=== PATIENT | female | born 1970 | race American Indian/Alaskan Native ===

== ENCOUNTER 2016-08-11 09:54 | Inpatient (IN) | payer OTHER ==
[2016-08-11] MEDS ORDERED: CARDIZEM IV ONE (11:01)
--- NOTE | 2016-08-11 11:24 | Emergency Department Report ---
HPI - General Chief Complaint: Chest Pain Time Seen by Provider: 08/11/16 11:00 - HPI HPI: Room 26 The patient is a 46-year-old female presenting with a chief complaint of chest pain or shortness of breath. Patient states she awakened this morning at 06:5 in her usual state of health. The patient states she went to work and at approximately 07:20 she developed substernal chest pain that was burning in nature. Patient states she felt short of breath and diaphoretic. Patient denies nausea or vomiting. Patient states her symptoms subsided when she sat down. Patient states when she got back up to go to the bathroom her symptoms returned causing her to hold onto the wall. The patient states EMS was called and they recommended she go to the ED or care. The patient went to an urgent care facility and when the weight was determined to be too long she came to the ED. The patient has been administered diltiazem 20 mg IV in the ED and currently states she feels "fine." Patient states her last stress test occurred approximately 6 years ago. Patient states she's never had a cardiac catheterization Location: Chest Duration: [see above] Quality: Burning Severity: Moderate Modifying factors: [see above] Context: [see above] Mode of transportation: [not driving] ED Past Medical Hx - Past Medical History Hx Hypertension: Yes Hx Congestive Heart Failure: Yes Hx Diabetes: Yes Hx Renal Disease: Yes (stg 4) Additional medical history: Palpitations "because of stress." - Surgical History Past Surgical History?: No - Family History Family history: no significant - Social History Smoking Status: Never Smoker Substance Use Type: None (denies illicit drug use) - Medications Home Medications: Home Medications Medication Instructions Recorded Confirmed Last Taken Type Furosemide [Lasix] 20 mg PO BID 08/11/16 08/11/16 08/10/16 History Metoprolol Xl [Metoprolol 50 mg PO QHS 08/11/16 08/11/16 08/10/16 History SUCCINATE ER TAB] amLODIPine [Norvasc] 5 mg PO BID 08/11/16 08/11/16 08/10/16 History glipiZIDE [glipiZIDE ER] 5 mg PO BID 08/11/16 08/11/16 08/10/16 History ED Review of Systems ROS: Stated complaint: ACCEL HR/CP/SOB/BP 190/110 Other details as noted in HPI Comment: All other systems reviewed and negative Constitutional: diaphoresis Eyes: denies: eye pain, eye discharge, vision change ENT: denies: ear pain, throat pain Respiratory: shortness of breath Cardiovascular: chest pain Endocrine: no symptoms reported Gastrointestinal: denies: abdominal pain, nausea, diarrhea Genitourinary: denies: urgency, dysuria, discharge Musculoskeletal: denies: back pain, joint swelling, arthralgia Skin: denies: rash, lesions Neurological: denies: headache, weakness, paresthesias Psychiatric: denies: anxiety, depression Hematological/Lymphatic: denies: easy bleeding, easy bruising Physical Exam - Physical Exam Vital Signs: Vital Signs 08/11/16 08/11/16 08/11/16 10:19 11:00 11:10 Temperature 98.2 F Pulse Rate 158 H 130 H Respiratory 22 18 Rate Blood Pressure 163/112 180/100 O2 Sat by Pulse 96 100 Oximetry Physical Exam: GENERAL: The patient is well-developed well-nourished female lying on stretcher not appear to be in acute distress. [] HEENT: Normocephalic. Atraumatic. Extraocular motions are intact. Patient has moist mucous membranes. NECK: Supple. Trachea midline CHEST/LUNGS: Clear to auscultation. There is no respiratory distress noted. HEART/CARDIOVASCULAR: Regular. There is no tachycardia. There is no gallop rub or murmur. ABDOMEN: Abdomen is soft, nontender. Patient has normal bowel sounds. There is no abdominal distention. SKIN: There is no rash. There is no edema. There is no diaphoresis. NEURO: The patient is awake, alert, and oriented. The patient is cooperative. The patient has normal speech MUSCULOSKELETAL: There is no evidence of acute injury. ED Course Vital Signs 08/11/16 08/11/16 08/11/16 10:19 11:00 11:10 Temperature 98.2 F Pulse Rate 158 H 130 H Respiratory 22 18 Rate Blood Pressure 163/112 180/100 O2 Sat by Pulse 96 100 Oximetry ED Medical Decision Making - Lab Data Result diagrams: 08/11/16 11:17 08/11/16 11:17 Laboratory Tests 08/11/16 08/11/16 08/11/16 11:17 11:17 11:17 WBC 8.9 RBC 4.97 Hgb 13.2 Hct 40.7 MCV 82 MCH 27 L MCHC 32 RDW 15.1 Plt Count 246 Lymph % (Auto) 28.4 [place] % (Auto) 7.9 H Eos % (Auto) 2.9 Baso % (Auto) 0.7 Lymph # 2.5 [place] # 0.7 Eos # 0.3 Baso # 0.1 Seg Neutrophils % 60.1 Seg Neutrophils # 5.3 PT 13.5 INR 1.04 APTT 35.6 Sodium 139 Potassium 4.2 Chloride 100.4 Carbon Dioxide 26 Anion Gap 17 BUN 14 Creatinine 1.2 Estimated GFR 59 BUN/Creatinine Ratio 11.66 Glucose 146 H Calcium 9.1 Magnesium 2.0 Total Creatine Kinase 199 H CK-MB (CK-2) 2.4 CK-MB (CK-2) Rel Index 1.2 Troponin T < 0.010 NT-Pro-B Natriuret Pep 461.7 H TSH Free T4 08/11/16 11:17 WBC RBC Hgb Hct MCV MCH MCHC RDW Plt Count Lymph % (Auto) [place] % (Auto) Eos % (Auto) Baso % (Auto) Lymph # [place] # Eos # Baso # Seg Neutrophils % Seg Neutrophils # PT INR APTT Sodium Potassium Chloride Carbon Dioxide Anion Gap BUN Creatinine Estimated GFR BUN/Creatinine Ratio Glucose Calcium Magnesium Total Creatine Kinase CK-MB (CK-2) CK-MB (CK-2) Rel Index Troponin T NT-Pro-B Natriuret Pep TSH 1.780 Free T4 1.16 - EKG Data -: EKG Interpreted by Me Rate: tachycardia - EKG Data When compared to previous EKG there are: changes noted Interpretation: other (EKG reveals atrial fibrillation with a rapid ventricular response of 150 bpm) - Radiology Data Radiology results: image reviewed (chest x-ray) interpreted by me: Chest x-ray-no focal infiltrates, no pneumothorax - Differential Diagnosis A. fib with RVR Critical care attestation.: If time is entered above; I have spent that time in minutes in the direct care of this critically ill patient, excluding procedure time. ED Disposition Clinical Impression: Chest pain, Atrial fibrillation with rapid ventricular response Disposition: OP ADMITTED IP TO THIS HOSP Is pt being admited?: Yes Does the pt Need Aspirin: Yes Condition: Fair Instructions: Chest Pain (ED) Referrals: PRIMARY CARE, [Primary Care Provider] - 3-5 Days Time of Disposition: 12:17 (hospitalist paged)
--- NOTE | 2016-08-11 11:29 | Admit Criteria Form ---
Admission Criteria Documentation: ATRIAL FIBRILLATION Clinical Indications for Admission to Inpatient Care (Place 'X' for any and all applicable criteria): Admission indicated for ANY ONE of the following(1)(2)(3)(4)(5) : [ ]I. Myocardial ischemia [ ]II. Dyspnea or hypoxemia [ ]III. Hemodynamic instability [ ]IV. Heart failure (e.g., pulmonary edema) (7) [ X]V. New-onset (less than 48 hours) atrial fibrillation with high risk for causing complications secondary to comorbidities (eg, symptomatic heart failure ) [ ]. Altered mental status [ ]VII. Syncope [ ]VIII. Patient has implantable cardioverter defibrillator that has fired more than once within past 24hr or needs immediate adjustment of settings that cannot be done other than in inpatient setting. (8) [ ]IX. Suspected accessory pathway (e.g., Cqxlv-Fzaxkggls-Bcsow syndrome) on ECG [ ]X. Recent systemic thromboembolism (eg, stroke) [ ]XI. Medication toxicity (e.g., digitalis) causing arrhythmia(9) [ ]XII. Underlying medical condition that necessitates inpatient care (e.g., thyrotoxicosis, pneumonia) (10) [ ]XIII. Continuous ECG monitoring is required for condition causing arrhythmia (e.g., severe hyperkalemia, hypokalemia, acid-base disturbance).(11)(12)(13) [ ]XIV. Initiation of antiarrhythmic drug therapy is needed in patient at high risk of adverse effects as indicated by ANY ONE of the following: [ ]a) Significant structural heart disease (e.g., reduced ejection fraction, congenital heart disease, valvular heart disease) [ ]b) Prolonged QT interval [ ]c) Underlying sinus node or atrioventricular conduction disturbances [ ]d) Need for treatment with antiarrhythmic drugs that have significant proarrhythmic potential (e.g., dofetilide, sotalol, procainamide) [ ]e) Patient whose sinus rhythm has never been observed on ECG [ ]XV. Intolerable symptoms despite optimal outpatient treatment [ ]XVI. Elective or urgent cardioversion that cannot be performed on outpatient basis or during observation care. [A] (Use also Atrial Fibrillation: Observation Care ) as appropriate.(14) [ ]XVII.Contraindications and/or Inappropriate clinical situations for Observational Care in patients with Atrial Fibrillation, when ANY ONE of the following is required: [ ]a) Patient with High risk of cardiac embolism (e.g, patients with previous cardiac embolism, LVEF < 40%, age >75 and patients with prosthetic valve) 18 [ ]b) Patient with Moderate risk including DM patient, CAD and patient aged 65-75 18 [ ]c) Patient with any change in cardiac biomarker especially troponin should be managed as high risk in an inpatient setting 19 [ ]d) Physician judgement irrespective of ECG and other diagnostic findings 20 [ X]XVIII.General contraindications and/or Inappropriate clinical situations for Observational Care in patients with Atrial Fibrillation, when ANY ONE of the following is required: [ ]a) Prediction of prolongation of LOS based on ANY ONE of the following may be considered as a contraindication for observational care 2, 3, 4, 5, 6, 7, 8, 9, 10, 11 [ ]i) Age > 65 yrs. [ ]ii) Patient arriving by ambulance [ ]iii) Patient with high acuity [ ]iv) Patient requiring vital sign monitoring [ ]v) Patient on IV medication [ ]b) Systolic blood pressures 180mmHg 3,12 [ ]c) Patient with altered mental status including delirium and other alteration of consciousness3 [ ]d) Patient whose discharge disposition will be to a care home home or rehabilitation home should not be managed in Emergency Department Observation Unit. CMS rule requires 3 days hospital stay before such placement.3,13 [ ]e) Patient with failure to thrive due to broad array of etiologies 3,16,17 [ ]f) Inability to ambulate 3,14 Extended stay beyond goal length of stay may be needed for (1)(25)(26): [ ]a) Unstable comorbidities [ ]b) Persistently uncontrolled atrial fibrillation or other arrhythmias [ ]c) Acute thromboembolic event (e.g., stroke, limb ischemia) [ ]d) Need for inpatient attainment of full anticoagulation The original [employer] content created by [employer] has been revised. The portions of the content which have been revised are identified through the use of italic text or in bold, and [employer] [employer] has neither reviewed nor approved the modified material. All other unmodified content is copyright [employer]. Please see references footnoted in the original [employer] [address] edition 2016 Admission Criteria Met: Yes
[2016-08-11 11:41] LABS: Basophils % (Auto) 0.7 % (0.0-1.8); Eosinophils % (Auto) 2.9 % (0.0-4.3); Hematocrit 40.7 % (30.3-42.9); Hemoglobin 13.2 gm/dl (10.1-14.3); Mean Corpuscular HGB Conc 32 % (30-34); Mean Corpuscular Hemoglobin 27 pg (28-32); Mean Corpuscular Volume 82 fl (79-97); Platelet Count 246 K/mm3 (140-440); Red Blood Count 4.97 M/mm3 (3.65-5.03); Red Cell Distribution Width 15.1 % (13.2-15.2); White Blood Count 8.9 K/mm3 (4.5-11.0)
[2016-08-11 11:48] LABS: INR 1.04 (0.87-1.13)
[2016-08-11 11:49] LABS: Partial Thromboplastin Time 35.6 Sec. (24.2-36.6)
[2016-08-11 11:56] LABS: Anion Gap 17 mmol/L; BUN/Creatinine Ratio 11.66; Blood Urea Nitrogen 14 mg/dL (7-17); Calcium 9.1 mg/dL (8.4-10.2); Carbon Dioxide 26 mmol/L (22-30); Chloride 100.4 mmol/L (98-107); Creatine Kinase 199 units/L (30-135); Creatine Kinase MB 2.4 ng/mL (0.0-4.0); Glucose 146 mg/dL (65-100); Potassium 4.2 mmol/L (3.6-5.0); Sodium 139 mmol/L (137-145)
--- NOTE | 2016-08-11 13:25 | XRay Report ---
AP CHEST: HISTORY: chest pain AP view of the chest demonstrates a normal mediastinal and cardiac contour with clear lungs and normal bony and soft tissue structures. IMPRESSION: Unremarkable AP chest.
[2016-08-11] MEDS ORDERED: TYLENOL PO PRN (13:43)
[2016-08-11] MEDS ORDERED: DULCOLAX PR PRN (13:43)
[2016-08-11] MEDS ORDERED: MILK OF MAGNESIA PO PRN (13:43)
[2016-08-11] MEDS ORDERED: DUONEB 0.5 MG-3 MG/3 ML SOLN IH PRN (13:43)
[2016-08-11] MEDS ORDERED: ZOFRAN IV PRN (13:43)
--- NOTE | 2016-08-11 13:50 | History and Physical Report ---
History of Present Illness Chief complaint: My heart is beating fast, and my chest is sore, and i cant breathe History of present illness: 46 YO Female with DM, CHF, HTN, CKD, MO, Metabolic Syndrome presents to ED for evaluation. Pt states that she has been experiencing symptoms for the past day. Pt states that she awoke at 0600 hrs and felt short of breath, and as if her heart was beating against her chest. Pt notified EMS. Pt denies fever, chills, NVD, prolonged travel/immobility, individual/family history of DVT/PE, leg swelling, calf pain, trauma, syncope, vertigo, BRBPR, Productive cough, unintentional weight loss, night sweats, or recent ill contacts. Pt seen and evaluated in ED and found to have A fib/RVR. Pt treated with Cardizem which resulted in conversion to normal sinus rhythm. Past History Past Medical History: atrial fib, diabetes, hypertension, renal failure Past Surgical History: No surgical history, Other (reviewed) Social history: single. denies: smoking, alcohol abuse, prescription drug abuse Family history: diabetes, hypertension Medications and Allergies Allergies Allergy/AdvReac Type Severity Reaction Status Date / Time No Known Allergies Allergy Verified 11/28/14 15:18 Home Medications Medication Instructions Recorded Confirmed Last Taken Type Furosemide [Lasix] 20 mg PO BID 08/11/16 08/11/16 08/10/16 History Metoprolol Xl [Metoprolol 50 mg PO QHS 08/11/16 08/11/16 08/10/16 History SUCCINATE ER TAB] amLODIPine [Norvasc] 5 mg PO BID 08/11/16 08/11/16 08/10/16 History glipiZIDE [glipiZIDE ER] 5 mg PO BID 08/11/16 08/11/16 08/10/16 History Active Meds: Active Medications Acetaminophen (Tylenol) 650 mg PO Q4H PRN PRN Reason: Pain MILD(1-3)/Fever >100.5/SMITH Albuterol/Ipratropium (Duoneb 0.5 Mg-3 Mg/3 Ml Soln) 1 ampul IH Q6HRT PRN PRN Reason: Wheezing Amlodipine Besylate (Norvasc) 5 mg PO BID [facility] Bisacodyl (Dulcolax) 10 mg DC QDAY PRN PRN Reason: Constipation unrelieved by MOM Furosemide (Lasix) 20 mg PO BID [facility] Magnesium Hydroxide (Milk Of Magnesia) 30 ml PO Q4H PRN PRN Reason: Constipation Metoprolol Succinate (Toprol Xl) 50 mg PO QHS [facility] Ondansetron HCl (Zofran) 4 mg IV Q8H PRN PRN Reason: N/V unrelieved by Reglan Review of Systems All systems: negative Cardiovascular: palpitations, shortness of breath Exam - Constitutional Vitals: Temp Pulse Resp BP Pulse Ox 98.2 F 130 H 18 180/100 100 08/11/16 10:19 08/11/16 11:10 08/11/16 11:00 08/11/16 11:10 08/11/16 11:00 General appearance: Present: mild distress, obese - EENT Eyes: Present: PERRL ENT: hearing intact, clear oral mucosa - Neck Neck: Present: supple, normal ROM - Respiratory Respiratory effort: normal Respiratory: bilateral: CTA - Cardiovascular Heart Sounds: Present: S1 & S2. Absent: rub, click - Extremities Extremities: pulses symmetrical, No edema Extremity abnormal: edema Peripheral Pulses: within normal limits - Abdominal General gastrointestinal: Present: soft, non-tender, non-distended, normal bowel sounds Female genitourinary: Present: normal - Integumentary Integumentary: Present: clear, warm, dry - Musculoskeletal Musculoskeletal: gait normal, strength equal bilaterally - Psychiatric Psychiatric: appropriate mood/affect, intact judgment & insight - Neurologic Neurologic: CNII-XII intact, moves all extremities Results - Labs CBC & Chem 7: 08/11/16 11:17 08/11/16 11:17 Labs: Abnormal lab results 08/11/16 08/11/16 Range/Units 11:17 11:17 MCH 27 L (28-32) pg [place] % (Auto) 7.9 H (0.0-7.3) % Glucose 146 H (65-100) mg/dL Total Creatine Kinase 199 H (30-135) units/L NT-Pro-B Natriuret Pep 461.7 H (0-450) pg/mL Assessment and Plan - Patient Problems (1) Atrial fibrillation with rapid ventricular response Current Visit: Yes Status: Acute Plan to address problem: Cardiology consulted, continue scheduled cardizem, telemetry, serial cardiac enzymes, ekg, echo, supportive care. (2) Metabolic syndrome Current Visit: Yes Status: Acute Plan to address problem: Pt counseled (3) CHF (congestive heart failure) Current Visit: No Status: Chronic Qualifiers: Congestive heart failure type: diastolic Congestive heart failure chronicity: chronic Qualified Code(s): I50.32 - Chronic diastolic (congestive ) heart failure Plan to address problem: CHF protocol: Echo, fluid restriction, resume home medication, cardiology consulted, diuretic therapy, monitor uop q shift, daily weights (4) Diabetes mellitus Current Visit: No Status: Chronic Qualifiers: Diabetes mellitus type: type 2 Diabetes mellitus complication status: without complication Diabetes mellitus complication detail: D Diabetic retinopathy severity: D Proliferative retinopathy type: P Diabetes mellitus macular edema: D Diabetes mellitus custodial insulin use: D Laterality: L Chronic kidney disease stage: C Qualified Code(s): E11.9 - Type 2 diabetes mellitus without complications Plan to address problem: ADA diet, insulin, accu check (5) HTN (hypertension) Current Visit: No Status: Chronic Qualifiers: Hypertension type: essential hypertension Qualified Code(s): I10 - Essential (primary) hypertension Plan to address problem: monitor bp q shift, continue current therapy (6) DVT prophylaxis Current Visit: Yes Status: Acute
[2016-08-11] MEDS ORDERED: D50W (25GM) IV PRN (13:52)
[2016-08-11] MEDS ORDERED: PROVENTIL IH PRN (13:54)
[2016-08-11 14:36] LABS: Urine Drugs of Abuse Note Disclamer
[2016-08-11] MEDS: NOVOLOG SUB-Q SCH ×3 (17:49→23:51)
[2016-08-11] MEDS: CARDIZEM PO SCH ×2 (17:57→23:40)
[2016-08-11] MEDS: LASIX PO SCH (22:00)
[2016-08-11] MEDS: TOPROL XL PO SCH (22:00)
[2016-08-11] MEDS: NORVASC PO SCH (22:00)
[2016-08-12] MEDS: CARDIZEM PO SCH ×4 (05:46→23:54)
[2016-08-12] MEDS: NOVOLOG SUB-Q SCH ×4 (07:15→21:44)
--- NOTE | 2016-08-12 09:52 | Consultation ---
History of Present Illness Consult date: 08/12/16 Consult reason: atrial fibrillation History of present illness: [age] obese -[place] female who is presenting with shortness of breath and palpitations to do emergency room she was found to be in atrial fibrillation with a rapid ventricular response patient was treated with IV Cardizem and reverted back to sinus rhythm. Past History Past Medical History: atrial fib, diabetes, hypertension Past Surgical History: No surgical history, Other (reviewed) Social history: single. denies: smoking, alcohol abuse, prescription drug abuse Family history: diabetes, hypertension Medications and Allergies Allergies Allergy/AdvReac Type Severity Reaction Status Date / Time No Known Allergies Allergy Verified 11/28/14 15:18 Home Medications Medication Instructions Recorded Confirmed Last Taken Type Furosemide [Lasix] 20 mg PO BID 08/11/16 08/11/16 08/10/16 History Metoprolol Xl [Metoprolol 50 mg PO QHS 08/11/16 08/11/16 08/10/16 History SUCCINATE ER TAB] amLODIPine [Norvasc] 5 mg PO BID 08/11/16 08/11/16 08/10/16 History glipiZIDE [glipiZIDE ER] 5 mg PO BID 08/11/16 08/11/16 08/10/16 History Active Meds: Active Medications Acetaminophen (Tylenol) 650 mg PO Q4H PRN PRN Reason: Pain MILD(1-3)/Fever >100.5/SMITH Albuterol (Proventil) 2.5 mg IH Q4HRT PRN PRN Reason: Shortness Of Breath Amlodipine Besylate (Norvasc) 5 mg PO BID [facility] Last Admin: 08/11/16 22:00 Dose: 5 mg Bisacodyl (Dulcolax) 10 mg IN QDAY PRN PRN Reason: Constipation unrelieved by MOM Dextrose (D50w (25gm)) 50 ml IV PRN PRN PRN Reason: Hypoglycemia Diltiazem HCl (Cardizem) 30 mg PO Q6HR [facility] Last Admin: 08/12/16 05:46 Dose: 30 mg Furosemide (Lasix) 20 mg PO BID [facility] Last Admin: 08/11/16 22:00 Dose: 20 mg Insulin Aspart (Novolog) 0 units SUB-Q ACHS [facility] PRN Reason: Protocol Last Admin: 08/11/16 23:51 Dose: Not Given Magnesium Hydroxide (Milk Of Magnesia) 30 ml PO Q4H PRN PRN Reason: Constipation Metoprolol Succinate (Toprol Xl) 50 mg PO QHS [facility] Last Admin: 08/11/16 22:00 Dose: 50 mg Ondansetron HCl (Zofran) 4 mg IV Q8H PRN PRN Reason: N/V unrelieved by Reglan Physical Examination Vital Signs Temp Pulse Resp BP Pulse Ox 98.2 F 158 H 22 163/112 96 08/11/16 10:19 08/11/16 10:19 08/11/16 10:19 08/11/16 10:19 08/11/16 10:19 General appearance: no acute distress, well-nourished, obese HEENT: Positive: PERRL, Mucus Membranes Moist Neck: Positive: neck supple, trachea midline Cardiac: Positive: Reg Rate and Rhythm, S1/S2. Negative: Audible Murmur Lungs: Positive: clear to auscultation, Normal Breath Sounds Neuro: Positive: Grossly Intact Abdomen: Positive: Soft, Active Bowel Sounds. Negative: Tender, Distended Female genitourinary: deferred Skin: Positive: Clear Incision: Cardiac Cath Site Musculoskeletal: No Pain, Normal Range of Motion Extremities: Present: normal. Absent: edema Results 08/11/16 11:17 08/11/16 11:17 - EKG Interpretation EKG: sinus rhythm, normal axis EKG interpretations - Telemetry EKG Rhythm: Sinus Rhythm - EKG Sinus rhythms and dysrhythmias: sinus rhythm Assessment and Plan 1. Paroxysmal atrial fibrillation currently in sinus rhythm 2. Essential hypertension 3. Type 2 diabetes mellitus 4. Obesity. Plan. Patient is currently stable and in a regular sinus rhythm labs reveal normal thyroid profile marginally elevated BNP levels could be secondary to patient's rapid atrial fibrillation on transient pulmonary vascular congestion. I would recommend patient to be discharged home on an aspirin a day to follow- up in the office follow. Outpatient workup.
[2016-08-12] MEDS: NORVASC PO SCH ×2 (10:25→21:42)
[2016-08-12] MEDS: LASIX PO SCH ×2 (10:25→21:43)
--- NOTE | 2016-08-12 13:03 | Progress Note ---
Assessment and Plan Assessment and plan: 46 YO Female with DM, CHF, HTN, CKD, MO, Metabolic Syndrome presents with palpitations Hospitalist Physical - Constitutional Vitals: Temp Pulse Resp BP Pulse Ox 98.5 F 65 20 196/93 96 08/12/16 12:17 08/12/16 12:17 08/12/16 09:40 08/12/16 12:17 08/12/16 12:17 General appearance: Present: no acute distress, well-nourished, obese Results - Labs CBC & Chem 7: 08/11/16 11:17 08/11/16 11:17 Labs: Laboratory Last Values WBC 8.9 K/mm3 (4.5-11.0) 08/11/16 11: RBC 4.97 M/mm3 (3.65-5.03) 08/11/16 11: Hgb 13.2 gm/dl (10.1-14.3) 08/11/16 11: Hct 40.7 % (30.3-42.9) 08/11/16 11:17 MCV 82 fl (79-97) 08/11/16 11:17 MCH 27 pg (28-32) L 08/11/16 11:17 MCHC 32 % (30-34) 08/11/16 11:17 RDW 15.1 % (13.2-15.2) 08/11/16 11:17 Plt Count 246 K/mm3 (140-440) 08/11/16 11:17 Lymph % (Auto) 28.4 % (13.4-35.0) 08/11/16 11:17 [place] % (Auto) 7.9 % (0.0-7.3) H 08/11/16 11:17 Eos % (Auto) 2.9 % (0.0-4.3) 08/11/16 11:17 Baso % (Auto) 0.7 % (0.0-1.8) 08/11/16 11:17 Lymph # 2.5 K/mm3 (1.2-5.4) 08/11/16 11:17 [place] # 0.7 K/mm3 (0.0-0.8) 08/11/16 11:17 Eos # 0.3 K/mm3 (0.0-0.4) 08/11/16 11:17 Baso # 0.1 K/mm3 (0.0-0.1) 08/11/16 11:17 Seg Neutrophils % 60.1 % (40.0-70.0) 08/11/16 11: Seg Neutrophils # 5.3 K/mm3 (1.8-7.7) 08/11/16 11:17 PT 13.5 Sec. (12.2-14.9) 08/11/16 11:17 INR 1.04 (0.87-1.13) 08/11/16 11:17 APTT 35.6 Sec. (24.2-36.6) 08/11/16 11:17 Sodium 139 mmol/L (137-145) 08/11/16 11: Potassium 4.2 mmol/L (3.6-5.0) 08/11/16 11: Chloride 100.4 mmol/L (98-107) 08/11/16 11: Carbon Dioxide 26 mmol/L (22-30) 08/11/16 11: Anion Gap 17 mmol/L 08/11/16 11:17 BUN 14 mg/dL (7-17) 08/11/16 11:17 Creatinine 1.2 mg/dL (0.7-1.2) 08/11/16 11:17 Estimated GFR 59 ml/min 08/11/16 11:17 BUN/Creatinine Ratio 11.66 % 08/11/16 11:17 Glucose 146 mg/dL (65-100) H 08/11/16 11:17 POC Glucose 150 (70-105) H 08/11/16 22:33 Calcium 9.1 mg/dL (8.4-10.2) 08/11/16 11:17 Magnesium 2.0 mg/dL (1.7-2.3) 08/11/16 11:17 Total Creatine Kinase 199 units/L (30-135) H 08/11/16 11:17 CK-MB (CK-2) 2.4 ng/mL (0.0-4.0) 08/11/16 11:17 CK-MB (CK-2) Rel Index 1.2 (0-4) 08/11/16 11:17 Troponin T < 0.010 ng/mL (0.00-0.029) 08/11/16 11:17 NT-Pro-B Natriuret Pep 461.7 pg/mL (0-450) H 08/11/16 11:17 TSH 1.780 mlU/mL (0.270-4.200) 08/11/16 11:17 Free T4 1.16 ng/dL (0.76-1.46) 08/11/16 11:17 Urine Opiates Screen Presumptive negative 08/11/16 14:30 Urine Methadone Screen Presumptive negative 08/11/16 14:30 Ur Barbiturates Screen Presumptive negative 08/11/16 14:30 Ur Phencyclidine Scrn Presumptive negative 08/11/16 14:30 Ur Amphetamines Screen Presumptive negative 08/11/16 14:30 U Benzodiazepines Scrn Presumptive negative 08/11/16 14:30 Urine Cocaine Screen Presumptive negative 08/11/16 14:30 U Marijuana (THC) Screen Presumptive negative 08/11/16 14:30 Drugs of Abuse Note Disclamer 08/11/16 14:30
--- NOTE | 2016-08-12 13:08 | Discharge Summary ---
Providers - Providers Date of Admission: 08/11/16 13:43 Attending physician: RODERICK BOYER MD Primary care physician: VALUATION MANAGER Hospitalization Hospital course: 46 YO Female with DM, CHF, HTN, CKD, MO, Metabolic Syndrome presents with palpitations, found to have rapid atrial fibrillation, she was treated and broke into sinus ryhtym, she was seen by cardiology who recommended Aspirin for stroke ppx and outpatient workup, and she was given appointment for 1 week Discharge Diagnosis Paroxysmal Afib with RVR Time spent for discharge: 35 minutes Core Measure Documentation - Palliative Care Palliative Care/ Comfort Measures: Not Applicable - Core Measures Any of the following diagnoses?: none Exam - Constitutional Vitals: Temp Pulse Resp BP Pulse Ox 98.5 F 65 20 196/93 96 08/12/16 12:17 08/12/16 12:17 08/12/16 09:40 08/12/16 12:17 08/12/16 12:17 General appearance: Present: no acute distress, well-nourished - EENT Eyes: Present: PERRL ENT: hearing intact, clear oral mucosa - Neck Neck: Present: supple, normal ROM - Respiratory Respiratory effort: normal Respiratory: bilateral: CTA - Cardiovascular Heart Sounds: Present: S1 & S2. Absent: rub, click - Extremities Extremities: pulses symmetrical, No edema Peripheral Pulses: within normal limits - Abdominal General gastrointestinal: Present: soft, non-tender, non-distended, normal bowel sounds Female genitourinary: Present: normal - Integumentary Integumentary: Present: clear, warm, dry - Musculoskeletal Musculoskeletal: gait normal, strength equal bilaterally - Psychiatric Psychiatric: appropriate mood/affect, intact judgment & insight - Neurologic Neurologic: CNII-XII intact, moves all extremities Plan Follow up with: PRIMARY CAREMD [Primary Care Provider] - 3-5 Days MISSY BONE MD [Staff Physician] - 7 Days Prescriptions: Aspirin EC [Aspirin Enteric Coated TAB] 325 mg PO QDAY #30 tablet. Metoprolol Succinate 100 mg PO DAILY #30 tab.er.24h
[2016-08-12] MEDS: TOPROL XL PO SCH (21:43)
[2016-08-13] MEDS: CARDIZEM PO SCH ×2 (06:01→12:05)
[2016-08-13] MEDS ORDERED: APRESOLINE IV PRN (06:07)
[2016-08-13] MEDS: NOVOLOG SUB-Q SCH ×2 (07:08→11:56)
[2016-08-13] MEDS: NORVASC PO SCH (09:43)
[2016-08-13] MEDS: LASIX PO SCH (09:43)
--- NOTE | 2016-08-13 11:46 | Progress Note ---
Assessment and Plan 1. Paroxysmal atrial fibrillation currently in sinus rhythm 2. Essential hypertension 3. Type 2 diabetes mellitus 4. Obesity. Echocardiogram shows concentric LVH with normal global and regional function. LVEF 55% Plan. Patient is currently stable and in a regular sinus rhythm labs reveal normal thyroid profile marginally elevated BNP levels could be secondary to patient's rapid atrial fibrillation on transient pulmonary vascular congestion. I would recommend patient to be discharged home on an aspirin a day to follow- up in the office follow. Subjective Date of service: 08/13/16 Interval history: No cardiac symptoms. Objective Vital Signs Temp Pulse Pulse Pulse Pulse Resp BP 08/13/16 09:43 83 181/88 08/13/16 09:41 83 08/13/16 07:37 98.1 F 96 H 20 08/13/16 06:21 97.6 F 64 19 08/13/16 06:15 191/95 08/13/16 06:01 191/95 08/13/16 00:00 98.6 F 73 19 08/12/16 23:04 80 08/12/16 21:43 71 190/96 08/12/16 21:42 71 190/96 08/12/16 20:26 78 78 20 08/12/16 20:00 98.5 F 71 19 08/12/16 18:36 82 145/86 08/12/16 17:28 97.6 F 72 72 H 08/12/16 13:00 78 08/12/16 12:17 98.5 F 65 08/12/16 12:15 64 196/93 BP Pulse Ox 08/13/16 09:43 08/13/16 09:41 181/88 08/13/16 07:37 183/104 97 08/13/16 06:21 191/95 94 08/13/16 06:15 08/13/16 06:01 08/13/16 00:00 181/91 96 08/12/16 23:04 08/12/16 21:43 08/12/16 21:42 08/12/16 20:26 08/12/16 20:00 190/96 95 08/12/16 18:36 08/12/16 17:28 185/80 100 08/12/16 13:00 08/12/16 12:17 196/93 96 08/12/16 12:15 - Physical Examination General: Appears Well, No Apparent Distress HEENT: Positive: PERRL, Mucus Membranes Moist Neck: Positive: neck supple, trachea midline. Negative: JVD/HJR Cardiac: Positive: Regular Rate, S1/S2, Systolic Murmur Lungs: Positive: clear to auscultation, No Wheeze, Rales, Rhonchi Neuro: Positive: Grossly Intact Abdomen: Positive: Unremarkable, Soft, Active Bowel Sounds. Negative: Tender, Distended Skin: Positive: Clear Incision: Cardiac Cath Site Musculoskeletal: No Pain, Normal Range of Motion Extremities: Present: normal. Absent: edema - EKG Sinus rhythms and dysrhythmias: sinus rhythm
[2016-08-13 12:06] VITALS: BP 182/95
== END 2016-08-13 14:38 | disposition home or self-care (01) | DRG 309 ==
LOC: ED 09:54 → 4A 13:43
PROVIDERS: ADMIT Internal Medicine; ATTEND Internal Medicine
DX: I48.0 Paroxysmal atrial fibrillation (principal); I50.32 Chronic diastolic (congestive) heart failure; I13.0 Hypertensive heart and chronic kidney disease with heart failure and stage 1 through stage 4 chronic kidney disease, or unspecified chronic kidney disease; N18.4 Chronic kidney disease, stage 4 (severe); Z68.43 Body mass index [BMI] 50.0-59.9, adult; E88.81 Metabolic syndrome and other insulin resistance; Z83.3 Family history of diabetes mellitus; Z82.49 Family history of ischemic heart disease and other diseases of the circulatory system; E66.01 Morbid (severe) obesity due to excess calories; E11.22 Type 2 diabetes mellitus with diabetic chronic kidney disease
CPT/HCPCS: 36415; 71010; 80048; 80307; 82550; 82553; 82962; 83735; 83880; 84439; 84443; 84484; 85025; 85610; 85730; 93005; 93010; 93306; 96374; 99285; J0360

== ENCOUNTER 2019-04-07 17:04 | Inpatient (IN) | payer OTHER ==
[2019-04-07] MEDS ORDERED: TETANUS,DIPH,PERTUSS(ACELL) VACCINE 0.5 ML SYRINGE IM ONE (18:27)
--- NOTE | 2019-04-07 18:41 | Emergency Department Report ---
ED General Adult HPI - General Chief complaint: High BP Stated complaint: HBP Time Seen by Provider: 04/07/19 18:14 Source: patient, EMS Mode of arrival: Stretcher Limitations: No Limitations - History of Present Illness Initial comments: Mrs. Angulo is a very pleasant 48-year-old female with history of hypertension, congestive heart failure, diabetes mellitus, paroxysmal atrial fibrillation, stage IV kidney disease who presents with severe hypertension and left thigh abscess cellulitis. She was evaluated by her PCP Dr. Ariel Davis. Blood pressure during intake, was 258/146. Without evaluation of the abscess, she was sent immediately to the emergency department. This is the first time that her blood pressure has been this high. She has been compliant with her medicines with the exception of furosemide. She did not take furosemide on yesterday because she was tired of the frequent urination caused by the diuretic. She has had increasing leg swelling for the last 3 days up to her knee. Normally swelling is localized at her ankles. The swelling is more severe than previously. She has a left thigh abscess with surrounding cellulitis without history of trauma. The abscess has been present for the past 7 days. It Is currently actively draining. She denies fever. She has had an abscess in her genital region several years ago on prior occasion. She denies chest pain or shortness of breath. She denies headache or blurry vision. According to documentation from PCP's office, patient also has history of major depressive disorder, obesity. In addition to above-named medical history. Medications: Amlodipine Eliquis Aspirin Furosemide Glipizide Metoprolol She is followed by a service desk lead at [facility]. PCP is Dr. Ariel Smith -: Gradual, days(s) (7) Location: left, lower extremity Severity scale (0 -10): 4 Quality: aching Consistency: constant Improves with: none Worsens with: none Associated Symptoms: other (severely elevated blood pressure) - Related Data Home Medications Medication Instructions Recorded Confirmed Last Taken Furosemide [Lasix TAB] 20 mg PO BID 08/11/16 08/11/16 08/10/16 amLODIPine 5 mg PO BID 08/11/16 08/11/16 08/10/16 glipiZIDE [glipiZIDE ER] 5 mg PO BID 08/11/16 08/11/16 08/10/16 Previous Rx's Medication Instructions Recorded Last Taken Type Aspirin EC 325 mg PO QDAY #30 tablet. 08/12/16 Unknown Rx Diltiazem HCl [Diltiazem ER] 120 mg PO DAILY #30 capsule.er 08/13/16 Unknown Rx Metoprolol Xl [Metoprolol 50 mg PO QHS #30 tablet 08/13/16 Unknown Rx SUCCINATE ER TAB] Allergies Allergy/AdvReac Type Severity Reaction Status Date / Time No Known Allergies Allergy Verified 11/28/14 15:18 ED Review of Systems ROS: Stated complaint: HBP Other details as noted in HPI Comment: All other systems reviewed and negative Constitutional: denies: fever, malaise Respiratory: denies: cough, shortness of breath Cardiovascular: denies: chest pain Gastrointestinal: denies: abdominal pain, nausea, vomiting Skin: lesions ED Past Medical Hx - Past Medical History Previous Medical History?: Yes Hx Hypertension: Yes Hx Congestive Heart Failure: Yes Hx Diabetes: Yes (Pre-diabetes) Hx Renal Disease: Yes (stg 4) Hx COPD: No Hx HIV: No Additional medical history: Palpitations "because of stress." - Surgical History Past Surgical History?: No - Family History Family history: diabetes, hypertension - Social History Smoking Status: Never Smoker Substance Use Type: None Other Social History: 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 She lives alone. - Medications Home Medications: Home Medications Medication Instructions Recorded Confirmed Last Taken Type Furosemide [Lasix TAB] 20 mg PO BID 08/11/16 08/11/16 08/10/16 History amLODIPine 5 mg PO BID 08/11/16 08/11/16 08/10/16 History glipiZIDE [glipiZIDE ER] 5 mg PO BID 08/11/16 08/11/16 08/10/16 History Aspirin EC 325 mg PO QDAY #30 tablet. 08/12/16 Unknown Rx Diltiazem HCl [Diltiazem ER] 120 mg PO DAILY #30 capsule.er 08/13/16 Unknown Rx Metoprolol Xl [Metoprolol 50 mg PO QHS #30 tablet 08/13/16 Unknown Rx SUCCINATE ER TAB] ED Physical Exam - General Limitations: No Limitations General appearance: alert, in no apparent distress, other (pleasant, articulate, no acute distress) - Head Head exam: Present: atraumatic, normocephalic - Eye Eye exam: Present: normal appearance. Absent: scleral icterus, conjunctival injection - ENT ENT exam: Present: mucous membranes moist - Neck Neck exam: Present: normal inspection, full ROM - Respiratory Respiratory exam: Present: normal lung sounds bilaterally. Absent: respiratory distress, wheezes, rales, rhonchi - Cardiovascular Cardiovascular Exam: Present: regular rate, normal rhythm, normal heart sounds. Absent: systolic murmur, diastolic murmur, rubs, gallop - GI/Abdominal GI/Abdominal exam: Present: soft. Absent: distended, tenderness, guarding, marily ound - Extremities Exam Extremities exam: Present: pedal edema, other (3+ pitting edema from feet to knee) - Neurological Exam Neurological exam: Present: alert, oriented X3 - Psychiatric Psychiatric exam: Present: normal affect, normal mood - Skin Skin exam: Present: warm, other (left posterior central thigh 1 cm ulcer with purulence drainage, flat abscess with 10 cm diameter surrounding induration/edema/erythema). Absent: rash ED Course Vital Signs 04/07/19 04/07/19 04/07/19 17:31 17:39 17:47 Temperature 98.4 F 98.4 F Pulse Rate 88 82 Respiratory 21 19 Rate Blood Pressure 260/135 Blood Pressure 247/127 [Left] O2 Sat by Pulse 96 95 94 Oximetry 04/07/19 04/07/19 04/07/19 19:15 20:00 20:15 Temperature Pulse Rate 82 97 H 98 H Respiratory 19 23 35 H Rate Blood Pressure 245/125 248/126 198/112 Blood Pressure [Left] O2 Sat by Pulse 93 96 97 Oximetry 04/07/19 04/07/19 04/07/19 20:31 20:45 21:01 Temperature Pulse Rate 98 H 96 H 105 H Respiratory 29 H 29 H 35 H Rate Blood Pressure 248/126 248/126 118/80 Blood Pressure [Left] O2 Sat by Pulse 96 95 95 Oximetry 04/07/19 04/07/19 04/07/19 21:15 21:31 21:45 Temperature Pulse Rate 95 H 100 H 102 H Respiratory 26 H 23 22 Rate Blood Pressure 210/109 182/94 191/97 Blood Pressure [Left] O2 Sat by Pulse 94 94 94 Oximetry ED Medical Decision Making - Lab Data Result diagrams: 04/07/19 18:37 04/07/19 18:37 Laboratory Results - last 24 hr 04/07/19 04/07/19 04/07/19 18:37 18:37 18:37 WBC 7.7 RBC 4.67 Hgb 12.7 Hct 38.7 MCV 83 MCH 27 L MCHC 33 RDW 16.3 H Plt Count 263 Lymph % (Auto) 28.7 Cataño % (Auto) 8.4 H Eos % (Auto) 8.7 H Baso % (Auto) 0.8 Lymph # 2.2 Cataño # 0.6 Eos # 0.7 H Baso # 0.1 Seg Neutrophils % 53.4 Seg Neutrophils # 4.1 Sodium 139 Potassium 3.1 L Chloride 97.8 L Carbon Dioxide 27 Anion Gap 17 BUN 15 Creatinine 1.5 H Estimated GFR 45 BUN/Creatinine Ratio 10 Glucose 98 Calcium 9.1 Total Bilirubin 0.70 AST 14 ALT 12 Alkaline Phosphatase 107 Troponin T < 0.010 NT-Pro-B Natriuret Pep Total Protein 8.0 Albumin 3.5 L Albumin/Globulin Ratio 0.8 04/07/19 18:37 WBC RBC Hgb Hct MCV MCH MCHC RDW Plt Count Lymph % (Auto) Cataño % (Auto) Eos % (Auto) Baso % (Auto) Lymph # Cataño # Eos # Baso # Seg Neutrophils % Seg Neutrophils # Sodium Potassium Chloride Carbon Dioxide Anion Gap BUN Creatinine Estimated GFR BUN/Creatinine Ratio Glucose Calcium Total Bilirubin AST ALT Alkaline Phosphatase Troponin T NT-Pro-B Natriuret Pep 2139 H Total Protein Albumin Albumin/Globulin Ratio - EKG Data 04/07/19 19:21 EKG obtained 1915 Normal sinus rhythm rate 80 beats a minute normal axis prolonged QT interval for age positive LVH enlarged P waves in inferior leads reflective of atrial enlargement no evidence of acute ischemia or infarct no significant ST elevation beyond repolarization abnormality 04/07/19 22:57 Second EKG obtained for new onset of chest pain while in the emergency department Siphon EKG reveals EKG sinus tachycardia 100 bpm no acute changes from previous EKG no ST elevation no T wave changes Q waves are prominent in leads 1 and aVL which is changed from previous - Radiology Data Radiology results: report reviewed - Medical Decision Making 1. Hypertensive Urgency Malignant: required Cardene infusion without any effect of IV hydralazine push on bloodp pressure, no end organ damage evident, I have consulted physician clinical research monitor for [facility] 2. left thigh abscess/cellulitis: I&D not necessary currently, will need IV antibiotics with hx of diabetes and extent of cellulitis. IV vancomycin initiated in the ED. TDAP booster provided. I have consulted Dr. Fam general surgeon to follow patient 3. After eating Ms. Angulo developed chest pain which feels like epigastric "numbness" repeat EKG without acute changes, treated with aspirin, tylenol, antacid Admitted to CCU hospitalist service. I d/w with Dr. Morales and provided bridging orders Critical Care Time: Yes Critical care attestation.: If time is entered above; I have spent that time in minutes in the direct care of this critically ill patient, excluding procedure time. 40 minutes of critical care time excluding procedures for use and care of the patient. Ms. Angulo required multiple consultations as well as several interventions and reassessments. I was concerned for end organ damage due to hypertension I was concerned for risk of rapid decrease in blood pressure. I reviewed the electronic medical record. ED Disposition Clinical Impression: Malignant hypertensive urgency, Abscess of left thigh, Cellulitis of left thigh, Hx of chronic congestive heart failure, Hx of chronic kidney disease Disposition: OP ADMIT IP TO THIS HOSP Is pt being admited?: Yes Does the pt Need Aspirin: No Condition: Stable
[2019-04-07 18:58] LABS: Basophils # (Auto) 0.1 K/mm3 (0.0-0.1); Basophils % (Auto) 0.8 % (0.0-1.8); Eosinophils # (Auto) 0.7 K/mm3 (0.0-0.4); Eosinophils % (Auto) 8.7 % (0.0-4.3); Hematocrit 38.7 % (30.3-42.9); Hemoglobin 12.7 gm/dl (10.1-14.3); Lymphocytes # (Auto) 2.2 K/mm3 (1.2-5.4); Lymphocytes % (Auto) 28.7 % (13.4-35.0); Mean Corpuscular HGB Conc 33 % (30-34); Mean Corpuscular Volume 83 fl (79-97); Monocytes # (Auto) 0.6 K/mm3 (0.0-0.8); Monocytes % (Auto) 8.4 % (0.0-7.3); Platelet Count 263 K/mm3 (140-440); Red Blood Count 4.67 M/mm3 (3.65-5.03); Red Cell Distribution Width 16.3 % (13.2-15.2)
[2019-04-07] MEDS ORDERED: hydrALAZINE 20 MG/1 ML INJ IV ONE (19:09)
[2019-04-07 19:19] LABS: Albumin 3.5 g/dL (3.9-5); Calcium 9.1 mg/dL (8.4-10.2)
[2019-04-07] MEDS ORDERED: VANCOMYCIN 2,000 MG in SODIUM CHLORIDE 0.9% 500 ML 500 ML IV ONE (19:29)
--- NOTE | 2019-04-07 19:50 | XRay Report ---
CHEST 2 VIEWS INDICATION: malignant HTN hx of CHf. COMPARISON: 08/11/2016. FINDINGS: Support devices: None. Heart: Table prominent cardiomegaly. Lungs/Pleura: No acute air space or interstitial disease. Left base not well imaged. No significant p leural effusion. IMPRESSION: 1. Stable cardiomegaly. 2. Left base not well imaged. Signer Name: Juan Estrada MD Signed: 04/07/2019 7:46 PM Workstation Name: [id number]
[2019-04-07] MEDS: niCARdipine 50 MG in SODIUM CHLORIDE 0.9% 250ML 230 ML IV SCH (21:26)
[2019-04-07] MEDS ORDERED: ACETAMINOPHEN 500 MG TAB PO ONE (22:02)
[2019-04-07] MEDS ORDERED: ASPIRIN 81 MG TAB CHEW PO ONE (22:02)
[2019-04-07] MEDS ORDERED: ALUM-MAG HYDROXIDE-SIMETHICONE 200-200-20MG/5ML ORAL LIQD 30 ML PO ONE (22:03)
[2019-04-07] MEDS ORDERED: MAGNESIUM HYDROXIDE (MOM) ORAL LIQD UDC PO PRN (23:34)
[2019-04-07] MEDS ORDERED: MORPHINE 2 MG/1 ML INJ IV PRN (23:34)
[2019-04-07] MEDS ORDERED: ONDANSETRON 4 MG/2 ML INJ IV PRN (23:34)
[2019-04-07] MEDS ORDERED: VANCOMYCIN PHARMACY TO DOSE IV SCH (23:45)
[2019-04-08 04:46] LABS: Basophils # (Auto) 0.1 K/mm3 (0.0-0.1); Basophils % (Auto) 0.8 % (0.0-1.8); Eosinophils # (Auto) 0.2 K/mm3 (0.0-0.4); Eosinophils % (Auto) 3.3 % (0.0-4.3); Hematocrit 38.3 % (30.3-42.9); Hemoglobin 12.6 gm/dl (10.1-14.3); Lymphocytes # (Auto) 1.6 K/mm3 (1.2-5.4); Lymphocytes % (Auto) 20.8 % (13.4-35.0); Mean Corpuscular HGB Conc 33 % (30-34); Mean Corpuscular Volume 82 fl (79-97); Monocytes # (Auto) 0.5 K/mm3 (0.0-0.8); Monocytes % (Auto) 6.5 % (0.0-7.3); Platelet Count 272 K/mm3 (140-440); Red Blood Count 4.66 M/mm3 (3.65-5.03)
[2019-04-08 04:55] LABS: INR 1.24 (0.87-1.13); Partial Thromboplastin Time 31.8 Sec. (24.2-36.6)
[2019-04-08 05:04] LABS: Calcium 8.8 mg/dL (8.4-10.2)
[2019-04-08] MEDS: niCARdipine 50 MG in SODIUM CHLORIDE 0.9% 250ML 230 ML IV SCH (05:24)
--- NOTE | 2019-04-08 06:35 | History and Physical Report ---
History of Present Illness Date of examination: 04/07/19 Date of admission: 04/07/19 22:10 Chief complaint: Elevated blood pressure History of present illness: Patient is a 48-year-old female with known history of hypertension, chronic kidney disease, congestive heart failure and diabetes mellitus. She had presented to her primary care physician's office today and was referred to the emergency room because of elevated blood pressure. Blood pressure systolic upon arrival in the emergency room was in the 250s. Patient also has a known history of left thigh cellulitis with an abscess which is currently draining. She had gone to her primary care physician for evaluation of this abscess on the thigh but was immediately referred to the emergency room for elevated blood pressure. Upon arrival in the emergency room patient was started on Cardene drip Past History Past Medical History: diabetes, heart failure, hypertension, other (Chronic kidney disease) Past Surgical History: No surgical history Social history: no significant social history Family history: diabetes, hypertension Medications and Allergies Allergies Allergy/AdvReac Type Severity Reaction Status Date / Time No Known Allergies Allergy Verified 11/28/14 15:18 Home Medications Medication Instructions Recorded Confirmed Last Taken Type Furosemide [Lasix TAB] 20 mg PO BID 08/11/16 04/07/19 08/10/16 History amLODIPine 5 mg PO BID 08/11/16 04/07/19 08/10/16 History glipiZIDE [glipiZIDE ER] 5 mg PO BID 08/11/16 04/07/19 08/10/16 History Aspirin EC 325 mg PO QDAY #30 tablet.dr 08/12/16 04/07/19 Unknown Rx Diltiazem HCl [Diltiazem ER] 120 mg PO DAILY #30 capsule.er 08/13/16 04/07/19 Unknown Rx Metoprolol Xl [Metoprolol 50 mg PO QHS #30 tablet 08/13/16 04/07/19 Unknown Rx SUCCINATE ER TAB] Active Meds: Active Medications Nicardipine HCl 50 mg/ Sodium (Chloride) 250 mls @ 25 mls/hr IV TITR FREDDY; Protocol Last Admin: 04/08/19 05:24 Dose: 5 mg/hr, 25 mls/hr Documented by: Vancomycin HCl 1,750 mg/ (Sodium Chloride) 535 mls @ 333.333 mls/hr IV Q12H FREDDY Magnesium Hydroxide (Milk Of Magnesia) 30 ml PO Q4H PRN PRN Reason: Constipation Morphine Sulfate (Morphine) 2 mg IV Q4H PRN PRN Reason: Pain, Moderate (4-6) Ondansetron HCl (Zofran) 4 mg IV Q8H PRN PRN Reason: Nausea And Vomiting Sodium Chloride (Sodium Chloride Flush Syringe 10 Ml) 10 ml IV BID FREDDY Sodium Chloride (Sodium Chloride Flush Syringe 10 Ml) 10 ml IV PRN PRN PRN Reason: LINE FLUSH Review of Systems Integumentary: boils (Cellulitis and abscess on the left thigh) Psychiatric: anxiety, depression Exam - Constitutional Vitals: Temp Pulse Resp BP Pulse Ox 98.4 F 79 32 H 170/97 95 04/07/19 17:47 04/08/19 05:41 04/08/19 05:41 04/08/19 05:41 04/08/19 05:41 General appearance: Present: no acute distress, obese - EENT Eyes: Present: PERRL, EOM intact ENT: hearing intact, clear oral mucosa, dentition normal - Neck Neck: Present: supple, normal ROM - Respiratory Respiratory effort: normal Respiratory: bilateral: CTA - Cardiovascular Rhythm: regular Heart Sounds: Present: S1 & S2 - Extremities Extremities: no ischemia, pulses intact Extremity abnormal: edema (1+ bilateral lower extremity edema), other (Cellulitis and abscess on the posterior aspect of the left thigh) Peripheral Pulses: within normal limits - Abdominal General gastrointestinal: Present: soft, non-tender, non-distended - Integumentary Integumentary: Present: clear, warm, dry - Musculoskeletal Musculoskeletal: strength equal bilaterally - Psychiatric Psychiatric: appropriate mood/affect, intact judgment & insight, cooperative - Neurologic Neurologic: CNII-XII intact, moves all extremities Results - Labs CBC & Chem 7: 04/08/19 04:22 04/08/19 04:22 Labs: Abnormal lab results 04/07/19 04/07/19 04/07/19 Range/Units 18:37 18:37 18:37 MCH 27 L (28-32) pg RDW 16.3 H (13.2-15.2) % Will % (Auto) 8.4 H (0.0-7.3) % Eos % (Auto) 8.7 H (0.0-4.3) % Eos # 0.7 H (0.0-0.4) K/mm3 PT (12.2-14.9) Sec. INR (0.87-1.13) Potassium 3.1 L (3.6-5.0) mmol/L Chloride 97.8 L (98-107) mmol/L Creatinine 1.5 H (0.7-1.2) mg/dL Glucose (65-100) mg/dL NT-Pro-B Natriuret Pep 2139 H (0-450) pg/mL Albumin 3.5 L (3.9-5) g/dL 04/08/19 04/08/19 04/08/19 Range/Units 04:22 04:22 04:22 MCH 27 L (28-32) pg RDW 17.0 H (13.2-15.2) % Will % (Auto) (0.0-7.3) % Eos % (Auto) (0.0-4.3) % Eos # (0.0-0.4) K/mm3 PT 15.5 H (12.2-14.9) Sec. INR 1.24 H (0.87-1.13) Potassium 3.3 L (3.6-5.0) mmol/L Chloride (98-107) mmol/L Creatinine (0.7-1.2) mg/dL Glucose 122 H (65-100) mg/dL NT-Pro-B Natriuret Pep (0-450) pg/mL Albumin (3.9-5) g/dL Assessment and Plan - Patient Problems (1) Malignant hypertensive urgency Current Visit: Yes Status: Acute Plan to address problem: Patient has been placed on Cardene drip. Will titrate according to protocol. (2) Abscess of left thigh Current Visit: Yes Status: Acute Plan to address problem: Patient started on empiric IV antibiotics. We will place a consult to general surgery for further evaluation. (3) Hx of chronic congestive heart failure Current Visit: Yes Status: Acute Plan to address problem: We will continue routine home medications. Will monitor daily weight. (4) DVT prophylaxis Current Visit: No Status: Acute Plan to address problem: Patient placed on sequential compression device.
[2019-04-08] MEDS: VANCOMYCIN 1,750 MG in SODIUM CHLORIDE 0.9% 500 ML 500 ML IV SCH ×2 (09:04→23:00)
--- NOTE | 2019-04-08 09:20 | Consultation ---
History of Present Illness Consult date: 04/08/19 Requesting physician: ARMAND MAGANA History of present illness: Patient is a 48-year-old female with known history of hypertension, chronic kidn ey disease, congestive heart failure and diabetes mellitus. She had presented to her primary care physician's office today and was referred to the emergency room because of elevated blood pressure. Blood pressure systolic upon arrival in the emergency room was in the 250s. Patient also has a known history of left thigh cellulitis with an abscess which is currently draining. She had gone to her primary care physician for evaluation of this abscess on the thigh but was immediately referred to the emergency room for elevated blood pressure. Upon arrival in the emergency room patient was started on Cardene drip She is being admitted to the ICU for critical care management and hypertension management/cellulitis Patient seen and examined. Vitals, labs, medications, chart reviewed. REVIEW OF SYSTEMS Comment: All other systems reviewed and negative Constitutional: denies: fever, malaise Respiratory: denies: cough, shortness of breath Cardiovascular: denies: chest pain Gastrointestinal: denies: abdominal pain, nausea, vomiting Skin: lesions - Past Medical History Previous Medical History?: Yes Hx Hypertension: Yes Hx Congestive Heart Failure: Yes Hx Diabetes: Yes (Pre-diabetes) Hx Renal Disease: Yes (stg 4) Hx COPD: No Hx HIV: No Additional medical history: Palpitations "because of stress." Past Surgical History?: No Family history: diabetes, hypertension - Social History Smoking Status: Never Smoker Substance Use Type: None 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 She lives alone. Past History Past Medical History: diabetes, heart failure, hypertension, other (Chronic kidn ey disease) Past Surgical History: No surgical history Social history: no significant social history Family history: diabetes, hypertension Medications and Allergies Allergies Allergy/AdvReac Type Severity Reaction Status Date / Time No Known Allergies Allergy Verified 11/28/14 15:18 Home Medications Medication Instructions Recorded Confirmed Last Taken Type Furosemide [Lasix TAB] 20 mg PO BID 08/11/16 04/07/19 08/10/16 History amLODIPine 5 mg PO BID 08/11/16 04/07/19 08/10/16 History glipiZIDE [glipiZIDE ER] 5 mg PO BID 08/11/16 04/07/19 08/10/16 History Aspirin EC 325 mg PO QDAY #30 tablet. 08/12/16 04/07/19 Unknown Rx Diltiazem HCl [Diltiazem ER] 120 mg PO DAILY #30 capsule.er 08/13/16 04/07/19 Unknown Rx Metoprolol Xl [Metoprolol 50 mg PO QHS #30 tablet 08/13/16 04/07/19 Unknown Rx SUCCINATE ER TAB] Active Meds: Active Medications Nicardipine HCl 50 mg/ Sodium (Chloride) 250 mls @ 25 mls/hr IV TITR FREDDY; Protocol Last Titration: 04/08/19 08:55 Dose: 5 mg/hr, 25 mls/hr Documented by: Vancomycin HCl 1,750 mg/ (Sodium Chloride) 535 mls @ 333.333 mls/hr IV Q12H FREDDY Last Admin: 04/08/19 09:04 Dose: 333.333 mls/hr Documented by: Magnesium Hydroxide (Milk Of Magnesia) 30 ml PO Q4H PRN PRN Reason: Constipation Morphine Sulfate (Morphine) 2 mg IV Q4H PRN PRN Reason: Pain, Moderate (4-6) Ondansetron HCl (Zofran) 4 mg IV Q8H PRN PRN Reason: Nausea And Vomiting Sodium Chloride (Sodium Chloride Flush Syringe 10 Ml) 10 ml IV BID FREDDY Sodium Chloride (Sodium Chloride Flush Syringe 10 Ml) 10 ml IV PRN PRN PRN Reason: LINE FLUSH Physical Examination Vital signs: Vital Signs Temp Pulse Resp BP Pulse Ox 98.4 F 88 21 260/135 96 04/07/19 17:31 04/07/19 17:31 04/07/19 17:31 04/07/19 17:31 04/07/19 17:31 Vitals reviewed General appearance: Present: mild distress, well-nourished, obese (Morbidly obese) - EENT Eyes: Present: PERRL, EOM intact - Neck Neck: Present: supple, normal ROM - Respiratory Respiratory effort: normal Respiratory: bilateral: diminished, negative: rales, rhonchi, wheezing - Cardiovascular Rhythm: regular Heart Sounds: Present: S1 & S2 - Extremities Extremities: no ischemia, pulses intact, No edema, normal temperature - Abdominal General gastrointestinal: soft, non-tender, non-distended, normal bowel sounds - Integumentary Integumentary: Present: clear, warm - Psychiatric Psychiatric: appropriate mood/affect, cooperative - Neurologic Neurologic: moves all extremities Results - Laboratory Findings CBC and BMP: 04/08/19 04:22 04/09/19 05:11 PT/INR, D-dimer PT 15.5 Sec. (12.2-14.9) H 04/08/19 04:22 INR 1.24 (0.87-1.13) H 04/08/19 04:22 Abnormal lab findings: Abnormal Labs 04/07/19 04/07/19 04/07/19 18:37 18:37 18:37 MCH 27 L RDW 16.3 H [place] % (Auto) 8.4 H Eos % (Auto) 8.7 H Eos # 0.7 H PT INR Potassium 3.1 L Chloride 97.8 L Creatinine 1.5 H Glucose NT-Pro-B Natriuret Pep 2139 H Albumin 3.5 L 04/08/19 04/08/19 04/08/19 04:22 04:22 04:22 MCH 27 L RDW 17.0 H [place] % (Auto) Eos % (Auto) Eos # PT 15.5 H INR 1.24 H Potassium 3.3 L Chloride Creatinine Glucose 122 H NT-Pro-B Natriuret Pep Albumin Assessment and Plan Hypertensive urgency Abscess of left thigh Hx of chronic congestive heart failure/Diastolic Hypokalemia Diabetes mellitus, SUB-OPTIMAL CONTROL Morbid obesity Recommendations ICU admission, once off IV antihypertensives can transfer to floor with telemetry monitoring Monitor blood pressure Chronic home medications Avoid nephrotoxins, renally adjust all medications Address abscess Antibiotics for soft tissue and skin infections VTE prophylaxis Tight glycemic control to help optimize wound healing Weight loss and life style modifications CODE STATUS: FULL CODE
--- NOTE | 2019-04-08 12:18 | Consultation ---
History of Present Illness Consult date: 04/08/19 Consult reason: hypertension History of present illness: This is a 48-year old woman with chronic hypertension managed and takes metoprolol and amlodipine for management. Yesterday she went to her primary care office for left thigh cellulitis, found with severely hypertensive and was referred to this hospital for evaluation and management. Blood pressure 260/135 on presentation to the emergency department. She is currently on intravenous Joshua ardipine drip for hypertensive management. Patient also has a history of paroxysmal atrial fibrillation and heart failure with a preserved ejection fraction. An echocardiogram done at [facility] in August, reports a left ventricular ejection fraction of 55-60%. She is on Eliquis for oral anticoagulation. Co-morbidities includes diabetes and obesity. A chest x-ray reports cardiomegaly but no evidence of interstitial edema. An ECG is sinus rhythm with LVH of repolarization abnormalities. Past History Past Medical History: diabetes, heart failure, hypertension, other (Chronic kidney disease) Social history: no significant social history Family history: diabetes, hypertension Medications and Allergies Allergies Allergy/AdvReac Type Severity Reaction Status Date / Time No Known Allergies Allergy Verified 11/28/14 15:18 Home Medications Medication Instructions Recorded Confirmed Last Taken Type Furosemide [Lasix TAB] 20 mg PO BID 08/11/16 04/07/19 08/10/16 History amLODIPine 5 mg PO BID 08/11/16 04/07/19 08/10/16 History glipiZIDE [glipiZIDE ER] 5 mg PO BID 08/11/16 04/07/19 08/10/16 History Aspirin EC 325 mg PO QDAY #30 tablet. 08/12/16 04/07/19 Unknown Rx Diltiazem HCl [Diltiazem ER] 120 mg PO DAILY #30 capsule.er 08/13/16 04/07/19 Unknown Rx Metoprolol Xl [Metoprolol 50 mg PO QHS #30 tablet 08/13/16 04/07/19 Unknown Rx SUCCINATE ER TAB] Active Meds: Active Medications Nicardipine HCl 50 mg/ Sodium (Chloride) 250 mls @ 25 mls/hr IV TITR FREDDY; Protocol Last Titration: 04/08/19 08:55 Dose: 5 mg/hr, 25 mls/hr Documented by: Vancomycin HCl 1,750 mg/ (Sodium Chloride) 535 mls @ 333.333 mls/hr IV Q12H FREDDY Last Infusion: 04/08/19 11:00 Dose: Infused Documented by: Magnesium Hydroxide (Milk Of Magnesia) 30 ml PO Q4H PRN PRN Reason: Constipation Morphine Sulfate (Morphine) 2 mg IV Q4H PRN PRN Reason: Pain, Moderate (4-6) Ondansetron HCl (Zofran) 4 mg IV Q8H PRN PRN Reason: Nausea And Vomiting Sodium Chloride (Sodium Chloride Flush Syringe 10 Ml) 10 ml IV BID FREDDY Sodium Chloride (Sodium Chloride Flush Syringe 10 Ml) 10 ml IV PRN PRN PRN Reason: LINE FLUSH Physical Examination Vital Signs Temp Pulse Resp BP Pulse Ox 98.4 F 88 21 260/135 96 04/07/19 17:31 04/07/19 17:31 04/07/19 17:31 04/07/19 17:31 04/07/19 17:31 General appearance: no acute distress HEENT: Positive: PERRL Neck: Positive: trachea midline Cardiac: Positive: Reg Rate and Rhythm Lungs: Positive: Decreased Breath Sounds Neuro: Positive: Grossly Intact Extremities: Present: Other (left thigh cellulitus) Results 04/08/19 04:22 04/08/19 04:22 Cardiac Enzymes 04/07/19 Range/Units 18:37 AST 14 (5-40) units/L Coagulation 04/08/19 Range/Units 04:22 PT 15.5 H (12.2-14.9) Sec. INR 1.24 H (0.87-1.13) APTT 31.8 (24.2-36.6) Sec. CBC 04/07/19 04/08/19 Range/Units 18:37 04:22 WBC 7.7 7.5 (4.5-11.0) K/mm3 RBC 4.67 4.66 (3.65-5.03) M/mm3 Hgb 12.7 12.6 (10.1-14.3) gm/dl Hct 38.7 38.3 (30.3-42.9) % Plt Count 263 272 (140-440) K/mm3 Lymph # 2.2 1.6 (1.2-5.4) K/mm3 Cache # 0.6 0.5 (0.0-0.8) K/mm3 Eos # 0.7 H 0.2 (0.0-0.4) K/mm3 Baso # 0.1 0.1 (0.0-0.1) K/mm3 Comprehensive Metabolic Panel 04/07/19 04/08/19 Range/Units 18:37 04:22 Sodium 139 138 (137-145) mmol/L Potassium 3.1 L 3.3 L (3.6-5.0) mmol/L Chloride 97.8 L 99.7 (98-107) mmol/L Carbon Dioxide 27 26 (22-30) mmol/L BUN 15 12 (7-17) mg/dL Creatinine 1.5 H 1.2 (0.7-1.2) mg/dL Glucose 98 122 H (65-100) mg/dL Calcium 9.1 8.8 (8.4-10.2) mg/dL AST 14 (5-40) units/L ALT 12 (7-56) units/L Alkaline Phosphatase 107 (35-129) units/L Total Protein 8.0 (6.3-8.2) g/dL Albumin 3.5 L (3.9-5) g/dL Assessment and Plan Hypertensive urgency on IV Nicardipine Left thigh cellulitis Hypokalemia Hx of heart failure with a preserved EF 55-60% by echo 08/2018 at [facility] Diabetes Obesity We will obtain an echocardiogram for LVEF reassessment.
--- NOTE | 2019-04-08 13:04 | Consultation ---
History of Present Illness Consult date: 04/08/19 Chief complaint: abscess - History of present illness History of present illness: 48 yo F with prediabetes, HTN who was sent to the hospital by her PCP Dr. Ariel Smith for very high BP. She states she had presented to his office for evaluation of an abscess on the back of her left thigh. Her BP was found to be in the 200s. She was admitted to the hospital and started on a cardene gtt. She states she feels well. She states she noticed a blister on the back of the left thigh which then burst. It drained clear fluid and then became thick yellow fluid. She has had an abscess like this once before on her labia which was drain ed by the [employer]. She denies f/c, cp, sob. She states the area is tender but the pain has significantly improved. Past History Past Medical History: diabetes, heart failure, hypertension, other (Chronic kidney disease) Past Surgical History: No surgical history Social history: no significant social history Family history: diabetes, hypertension Medications and Allergies Allergies Allergy/AdvReac Type Severity Reaction Status Date / Time No Known Allergies Allergy Verified 11/28/14 15:18 Home Medications Medication Instructions Recorded Confirmed Last Taken Type Furosemide [Lasix TAB] 20 mg PO BID 08/11/16 04/07/19 08/10/16 History amLODIPine 5 mg PO BID 08/11/16 04/07/19 08/10/16 History glipiZIDE [glipiZIDE ER] 5 mg PO BID 08/11/16 04/07/19 08/10/16 History Aspirin EC 325 mg PO QDAY #30 tablet. 08/12/16 04/07/19 Unknown Rx Diltiazem HCl [Diltiazem ER] 120 mg PO DAILY #30 capsule.er 08/13/16 04/07/19 Unknown Rx Metoprolol Xl [Metoprolol 50 mg PO QHS #30 tablet 08/13/16 04/07/19 Unknown Rx SUCCINATE ER TAB] Active Meds: Active Medications Nicardipine HCl 50 mg/ Sodium (Chloride) 250 mls @ 25 mls/hr IV TITR FREDDY; Protocol Last Titration: 04/08/19 08:55 Dose: 5 mg/hr, 25 mls/hr Documented by: Vancomycin HCl 1,750 mg/ (Sodium Chloride) 535 mls @ 333.333 mls/hr IV Q12H COUNT INCLUDES THE [facility] Last Infusion: 04/08/19 11:00 Dose: Infused Documented by: Magnesium Hydroxide (Milk Of Magnesia) 30 ml PO Q4H PRN PRN Reason: Constipation Morphine Sulfate (Morphine) 2 mg IV Q4H PRN PRN Reason: Pain, Moderate (4-6) Ondansetron HCl (Zofran) 4 mg IV Q8H PRN PRN Reason: Nausea And Vomiting Sodium Chloride (Sodium Chloride Flush Syringe 10 Ml) 10 ml IV BID FREDDY Sodium Chloride (Sodium Chloride Flush Syringe 10 Ml) 10 ml IV PRN PRN PRN Reason: LINE FLUSH Review of Systems All systems: negative (10 pt ROS performed and negative except for that listed in HPI) Exam Vital Signs Temp Pulse Resp BP Pulse Ox 98.4 F 88 21 260/135 96 04/07/19 17:31 04/07/19 17:31 04/07/19 17:31 04/07/19 17:31 04/07/19 17:31 Narrative exam: Gen: AAOx3. NAD ENT: No scleral icterus or conjunctival pallor CV: s1, S2+ Resp: even and unlabored Abd: soft Ext: no c/c/e. L posterior thigh ulceration of skin measuring 2x2 cm, no depth. No drainage. Surrounding induration but no fluctuance. No visible erythema. Alginate applied to ulceration, covered with dry dressing. No crepitus in area Results - Labs 04/08/19 04:22 04/08/19 04:22 Abnormal lab results 04/07/19 04/07/19 04/07/19 Range/Units 18:37 18:37 18:37 MCH 27 L (28-32) pg RDW 16.3 H (13.2-15.2) % [place] % (Auto) 8.4 H (0.0-7.3) % Eos % (Auto) 8.7 H (0.0-4.3) % Eos # 0.7 H (0.0-0.4) K/mm3 PT (12.2-14.9) Sec. INR (0.87-1.13) Potassium 3.1 L (3.6-5.0) mmol/L Chloride 97.8 L (98-107) mmol/L Creatinine 1.5 H (0.7-1.2) mg/dL Glucose (65-100) mg/dL NT-Pro-B Natriuret Pep 2139 H (0-450) pg/mL Albumin 3.5 L (3.9-5) g/dL 04/08/19 04/08/19 04/08/19 Range/Units 04:22 04:22 04:22 MCH 27 L (28-32) pg RDW 17.0 H (13.2-15.2) % [place] % (Auto) (0.0-7.3) % Eos % (Auto) (0.0-4.3) % Eos # (0.0-0.4) K/mm3 PT 15.5 H (12.2-14.9) Sec. INR 1.24 H (0.87-1.13) Potassium 3.3 L (3.6-5.0) mmol/L Chloride (98-107) mmol/L Creatinine (0.7-1.2) mg/dL Glucose 122 H (65-100) mg/dL NT-Pro-B Natriuret Pep (0-450) pg/mL Albumin (3.9-5) g/dL Diabetes panel 04/07/19 04/08/19 Range/Units 18:37 04:22 Sodium 139 138 (137-145) mmol/L Potassium 3.1 L 3.3 L (3.6-5.0) mmol/L Chloride 97.8 L 99.7 (98-107) mmol/L Carbon Dioxide 27 26 (22-30) mmol/L BUN 15 12 (7-17) mg/dL Creatinine 1.5 H 1.2 (0.7-1.2) mg/dL Glucose 98 122 H (65-100) mg/dL Calcium 9.1 8.8 (8.4-10.2) mg/dL AST 14 (5-40) units/L ALT 12 (7-56) units/L Alkaline Phosphatase 107 (35-129) units/L Total Protein 8.0 (6.3-8.2) g/dL Albumin 3.5 L (3.9-5) g/dL Calcium panel 04/07/19 04/08/19 Range/Units 18:37 04:22 Calcium 9.1 8.8 (8.4-10.2) mg/dL Albumin 3.5 L (3.9-5) g/dL Pituitary panel 04/07/19 04/08/19 Range/Units 18:37 04:22 Sodium 139 138 (137-145) mmol/L Potassium 3.1 L 3.3 L (3.6-5.0) mmol/L Chloride 97.8 L 99.7 (98-107) mmol/L Carbon Dioxide 27 26 (22-30) mmol/L BUN 15 12 (7-17) mg/dL Creatinine 1.5 H 1.2 (0.7-1.2) mg/dL Glucose 98 122 H (65-100) mg/dL Calcium 9.1 8.8 (8.4-10.2) mg/dL Adrenal panel 04/07/19 04/08/19 Range/Units 18:37 04:22 Sodium 139 138 (137-145) mmol/L Potassium 3.1 L 3.3 L (3.6-5.0) mmol/L Chloride 97.8 L 99.7 (98-107) mmol/L Carbon Dioxide 27 26 (22-30) mmol/L BUN 15 12 (7-17) mg/dL Creatinine 1.5 H 1.2 (0.7-1.2) mg/dL Glucose 98 122 H (65-100) mg/dL Calcium 9.1 8.8 (8.4-10.2) mg/dL Total Bilirubin 0.70 (0.1-1.2) mg/dL AST 14 (5-40) units/L ALT 12 (7-56) units/L Alkaline Phosphatase 107 (35-129) units/L Total Protein 8.0 (6.3-8.2) g/dL Albumin 3.5 L (3.9-5) g/dL Assessment and Plan 48 yo F with abscess of left posterior thigh, spontaneously drained Plan: 1. Local wound care - alginate to wound bed every other day. Abscess has already spontaneously drained. 2. continue abx 3. follow up wound cultures - prelim staph aureus 4. prn pain control 5. warm compress to area as needed Will follow up in am. Thank you, please call with questions.
--- NOTE | 2019-04-08 14:13 | Progress Note ---
Assessment and Plan Assessment and plan: --Hypertensive urgency Current Visit: Yes Status: Acute Patient has been placed on Cardene drip. Will titrate according to protocol. And DC Continue multiple oral antihypertensives -- Abscess of left thigh Current Visit: Yes Status: Acute Patient started on empiric IV antibiotics. general surgery evaluation and recommendations noted and appreciated Hx of chronic congestive heart failure/Diastolic Current Visit: Yes Status: Acute We will continue routine home medications. Cardiology evaluation noted and appreciated --hypokalemia; Replace per protocol and monitor levels. --diabetes mellitus Accu-Chek sliding scale coverage ADA diet and insulin. --morbid obesity BMI 45.3 Advised weight reduction when medically stable -- DVT prophylaxis Current Visit: No Status: Acute Patient placed on sequential compression device. Monitor closely and adjust management as needed Stable to be transferred out of ICU to telemetry Plan of care reviewed with the patient and her nurse Critical care time 33 minutes History Interval history: Patient seen and evaluated in ICU medical records reviewed Admitted with uncontrolled hypertension, received Cardene drip Also has abscess on the posterior thigh which is draining. Patient's blood pressures are mildly improved Denies chest pain mild shortness of breath Vital signs noted Hospitalist Physical - Constitutional Vitals: Temp Pulse Resp BP Pulse Ox 98.1 F 80 19 157/96 98 04/08/19 09:05 04/08/19 10:51 04/08/19 10:51 04/08/19 10:51 04/08/19 10:51 General appearance: Present: mild distress, well-nourished, obese (Morbidly obese) - EENT Eyes: Present: PERRL, EOM intact - Neck Neck: Present: supple, normal ROM - Respiratory Respiratory effort: normal Respiratory: bilateral: diminished, negative: rales, rhonchi, wheezing - Cardiovascular Rhythm: regular Heart Sounds: Present: S1 & S2 - Extremities Extremities: no ischemia, pulses intact, No edema, normal temperature - Abdominal General gastrointestinal: soft, non-tender, non-distended, normal bowel sounds - Integumentary Integumentary: Present: clear, warm - Psychiatric Psychiatric: appropriate mood/affect, cooperative - Neurologic Neurologic: moves all extremities Results - Labs CBC & Chem 7: 04/08/19 04:22 04/08/19 04:22 Labs: Laboratory Last Values WBC 7.5 K/mm3 (4.5-11.0) 04/08/19 04:22 RBC 4.66 M/mm3 (3.65-5.03) 04/08/19 04:22 Hgb 12.6 gm/dl (10.1-14.3) 04/08/19 04:22 Hct 38.3 % (30.3-42.9) 04/08/19 04:22 MCV 82 fl (79-97) 04/08/19 04:22 MCH 27 pg (28-32) L 04/08/19 04:22 MCHC 33 % (30-34) 04/08/19 04:22 RDW 17.0 % (13.2-15.2) H 04/08/19 04:22 Plt Count 272 K/mm3 (140-440) 04/08/19 04:22 Lymph % (Auto) 20.8 % (13.4-35.0) 04/08/19 04:22 [place] % (Auto) 6.5 % (0.0-7.3) 04/08/19 04:22 Eos % (Auto) 3.3 % (0.0-4.3) 04/08/19 04:22 Baso % (Auto) 0.8 % (0.0-1.8) 04/08/19 04:22 Lymph # 1.6 K/mm3 (1.2-5.4) 04/08/19 04:22 [place] # 0.5 K/mm3 (0.0-0.8) 04/08/19 04:22 Eos # 0.2 K/mm3 (0.0-0.4) 04/08/19 04:22 Baso # 0.1 K/mm3 (0.0-0.1) 04/08/19 04:22 Seg Neutrophils % 68.6 % (40.0-70.0) 04/08/19 04:22 Seg Neutrophils # 5.1 K/mm3 (1.8-7.7) 04/08/19 04:22 PT 15.5 Sec. (12.2-14.9) H 04/08/19 04:22 INR 1.24 (0.87-1.13) H 04/08/19 04:22 APTT 31.8 Sec. (24.2-36.6) 04/08/19 04:22 Sodium 138 mmol/L (137-145) 04/08/19 04:22 Potassium 3.3 mmol/L (3.6-5.0) L 04/08/19 04:22 Chloride 99.7 mmol/L (98-107) 04/08/19 04:22 Carbon Dioxide 26 mmol/L (22-30) 04/08/19 04:22 Anion Gap 16 mmol/L 04/08/19 04:22 BUN 12 mg/dL (7-17) 04/08/19 04:22 Creatinine 1.2 mg/dL (0.7-1.2) 04/08/19 04:22 Estimated GFR 58 ml/min 04/08/19 04:22 BUN/Creatinine Ratio 10 % 04/08/19 04:22 Glucose 122 mg/dL (65-100) H 04/08/19 04:22 POC Glucose 91 (70-105) 04/08/19 09:50 Calcium 8.8 mg/dL (8.4-10.2) 04/08/19 04:22 Total Bilirubin 0.70 mg/dL (0.1-1.2) 04/07/19 18:37 AST 14 units/L (5-40) 04/07/19 18:37 ALT 12 units/L (7-56) 04/07/19 18:37 Alkaline Phosphatase 107 units/L (35-129) 04/07/19 18:37 Troponin T < 0.010 ng/mL (0.00-0.029) 04/07/19 23:13 NT-Pro-B Natriuret Pep 2139 pg/mL (0-450) H 04/07/19 18:37 Total Protein 8.0 g/dL (6.3-8.2) 04/07/19 18:37 Albumin 3.5 g/dL (3.9-5) L 04/07/19 18:37 Albumin/Globulin Ratio 0.8 % 04/07/19 18:37 Active Medications - Current Medications Current Medications: Generic Name Dose Route Start Last Admin Trade Name Freq PRN Reason Stop Dose Admin Doxazosin Mesylate 2 mg 04/08/19 14:00 Cardura PO BID FREDDY Hydralazine HCl 10 mg 04/08/19 13:19 Apresoline IV Q4HR PRN SBP >150 Vancomycin HCl 1,750 mg/ 535 mls @ 333.333 mls/hr 04/08/19 08:00 04/08/19 11:00 Sodium Chloride IV Infused Q12H [facility] Infusion Magnesium Hydroxide 30 ml 04/07/19 23:34 Milk Of Magnesia PO Q4H PRN Constipation Metoprolol Tartrate 50 mg 04/08/19 14:00 Metoprolol PO BID [facility] Morphine Sulfate 2 mg 04/07/19 23:34 Morphine IV Q4H PRN Pain, Moderate (4-6) Nifedipine 90 mg 04/08/19 14:00 Procardia Xl PO QDAY [facility] Ondansetron HCl 4 mg 04/07/19 23:34 Zofran IV Q8H PRN Nausea And Vomiting Sodium Chloride 10 ml 04/08/19 10:00 Sodium Chloride Flush Syringe 10 Ml IV BID [facility] Sodium Chloride 10 ml 04/07/19 23:34 Sodium Chloride Flush Syringe 10 Ml IV PRN PRN LINE FLUSH
[2019-04-08] MEDS: NIFEdipine XL 90 MG TAB PO SCH (14:33)
[2019-04-08] MEDS: DOXAZOSIN 1 MG TAB PO SCH ×2 (14:33→21:47)
[2019-04-08] MEDS: METOPROLOL TARTRATE 50 MG TAB PO SCH ×2 (14:33→21:47)
[2019-04-08] MEDS: hydrALAZINE 20 MG/1 ML INJ IV PRN (15:37)
[2019-04-09] MEDS: VANCOMYCIN 1,750 MG in SODIUM CHLORIDE 0.9% 500 ML 500 ML IV SCH ×2 (08:21→21:00)
[2019-04-09] MEDS: DOXAZOSIN 1 MG TAB PO SCH ×2 (11:02→21:56)
[2019-04-09] MEDS: METOPROLOL TARTRATE 50 MG TAB PO SCH ×2 (11:04→21:57)
[2019-04-09] MEDS: NIFEdipine XL 90 MG TAB PO SCH (11:04)
--- NOTE | 2019-04-09 11:19 | Progress Note ---
Assessment and Plan Hypertension treated with Procardia XL and Cardura Left thigh abscess Hypokalemia Paroxysmal Afib -on eliquis for oral anticoagulation on metoprolol for suppression Hx of heart failure with a preserved EF Diabetes Obesity Recommend: Continue aggressive hypertension management. Subjective Date of service: 04/09/19 Interval history: Patient has no complaints. Blood pressure has improved, currently at 146/82. Objective Vital Signs Temp Pulse Resp Resp BP BP Pulse Ox 04/09/19 11:04 78 04/09/19 11:02 78 04/09/19 07:42 98.2 F 74 18 143/78 91 04/09/19 04:40 75 04/09/19 03:26 97.8 F 75 18 144/77 92 04/09/19 00:00 66 04/08/19 23:18 98.0 F 67 16 131/70 90 04/08/19 22:24 54 L 04/08/19 22:00 78 17 04/08/19 21:47 77 145/74 04/08/19 19:35 97.9 F 77 18 141/75 96 04/08/19 18:10 70 20 138/78 95 04/08/19 15:41 85 41 H 161/87 98 04/08/19 15:37 83 161/87 04/08/19 15:31 83 36 H 161/87 96 04/08/19 15:21 83 38 H 161/87 96 04/08/19 15:11 82 21 161/87 96 04/08/19 15:00 79 40 H 174/92 97 04/08/19 14:51 81 26 H 174/90 98 04/08/19 14:41 80 14 174/90 98 04/08/19 14:33 81 174/90 04/08/19 14:31 81 17 174/90 98 04/08/19 14:21 84 18 174/90 97 04/08/19 14:11 80 37 H 174/90 97 04/08/19 14:00 81 37 H 174/90 96 04/08/19 13:51 81 29 H 186/94 98 04/08/19 13:41 80 37 H 186/94 96 04/08/19 13:31 77 33 H 186/94 95 04/08/19 13:21 79 34 H 186/94 97 04/08/19 13:11 80 19 186/94 97 04/08/19 13:00 80 32 H 186/94 95 04/08/19 12:51 78 18 155/75 96 04/08/19 12:41 83 16 155/75 97 04/08/19 12:31 86 23 155/75 97 04/08/19 12:21 86 24 155/75 98 04/08/19 12:11 81 19 155/75 96 04/08/19 12:00 79 33 H 155/75 97 04/08/19 11:51 78 14 95 04/08/19 11:41 79 27 H 96 04/08/19 11:31 83 19 98 04/08/19 11:27 81 15 98 - Physical Examination General: No Apparent Distress HEENT: Positive: PERRL Neck: Positive: trachea midline Cardiac: Positive: Reg Rate and Rhythm Lungs: Positive: Normal Breath Sounds Neuro: Positive: Grossly Intact Extremities: Present: Other (left thigh abscess) - Labs and Meds Comprehensive Metabolic Panel 04/09/19 Range/Units 05:11 Potassium 3.2 L (3.6-5.0) mmol/L
--- NOTE | 2019-04-09 13:42 | Progress Note ---
Assessment and Plan Patient is awake and alert. O2 via nasal cannula for 2L, but patient was not wearing it, stated that she removed it at 3pm. O2 saturation is 94%. Pt afebrile, no leukocytosis. - Patient Problems (1) Abscess of left thigh Current Visit: Yes Status: Acute Plan to address problem: Management per primary team. (2) Chest pain Current Visit: No Status: Acute Plan to address problem: Management as per cardiology. (3) Paroxysmal atrial fibrillation Current Visit: No Status: Chronic Plan to address problem: Management as per cardiology. (4) Atrial fibrillation with rapid ventricular response Current Visit: No Status: Acute Plan to address problem: management as per cardiology (5) CHF (congestive heart failure) Current Visit: No Status: Chronic Plan to address problem: management as per cardiology (6) Diabetes mellitus Current Visit: No Status: Chronic Qualifiers: Diabetes mellitus type: type 2 Diabetes mellitus complication status: without complication Qualified Code(s): E11.9 - Type 2 diabetes mellitus without complications Plan to address problem: Management as per primary team. (7) HTN (hypertension) Current Visit: No Status: Chronic Qualifiers: Hypertension type: essential hypertension Qualified Code(s): I10 - Essential (primary) hypertension Plan to address problem: Management as per primary team. (8) Morbid obesity with BMI of 45.0-49.9, adult Current Visit: Yes Status: Acute Plan to address problem: Recommend to lose weight. Recommend diet and exercise. recommend sleep study as outpatient. Subjective Date of service: 04/09/19 Interval history: Patient is awake and alert. O2 via nasal cannula for 2L, but patient was not wearing it, stated that she removed it at 3pm. O2 saturation is 94%. Pt afebrile, no leukocytosis. Objective Vital Signs - 12hr 04/09/19 04/09/19 04/09/19 03:26 04:40 07:42 Temperature 97.8 F 98.2 F Pulse Rate 75 75 74 Respiratory 18 18 Rate Blood Pressure 144/77 143/78 O2 Sat by Pulse 92 91 Oximetry 04/09/19 04/09/19 04/09/19 10:59 11:02 11:04 Temperature 98.6 F Pulse Rate 78 78 78 Respiratory 18 Rate Blood Pressure 146/82 O2 Sat by Pulse 92 Oximetry Constitutional: no acute distress, alert Eyes: non-icteric ENT: oropharynx moist Neck: supple Effort: normal Ascultation: Bilateral: diminished breath sounds (at bases) Cardiovascular: regular rate and rhythm Gastrointestinal: non-tender, non-distended, other (obese) Integumentary: normal Extremities: no cyanosis Neurologic: normal mental status, non-focal exam, pupils equal and round, CN II- XII normal Psychiatric: mood appropriate CBC and BMP: 04/08/19 04:22 04/09/19 05:11 ABG, PT/INR, D-dimer: PT/INR, D-dimer PT 15.5 Sec. (12.2-14.9) H 04/08/19 04:22 INR 1.24 (0.87-1.13) H 04/08/19 04:22 Abnormal lab findings: Abnormal Labs 04/07/19 04/07/19 04/07/19 18:37 18:37 18:37 MCH 27 L RDW 16.3 H [place] % (Auto) 8.4 H Eos % (Auto) 8.7 H Eos # 0.7 H PT INR Potassium 3.1 L Chloride 97.8 L Creatinine 1.5 H Glucose POC Glucose NT-Pro-B Natriuret Pep 2139 H Albumin 3.5 L 04/08/19 04/08/19 04/08/19 04:22 04:22 04:22 MCH 27 L RDW 17.0 H [place] % (Auto) Eos % (Auto) Eos # PT 15.5 H INR 1.24 H Potassium 3.3 L Chloride Creatinine Glucose 122 H POC Glucose NT-Pro-B Natriuret Pep Albumin 04/08/19 04/09/19 11:31 05:11 MCH RDW [place] % (Auto) Eos % (Auto) Eos # PT INR Potassium 3.2 L Chloride Creatinine Glucose POC Glucose 114 H NT-Pro-B Natriuret Pep Albumin Chest x-ray: report reviewed (Stable cardiomegaly. Left base is not well visualized.), image reviewed
--- NOTE | 2019-04-09 15:10 | Progress Note ---
Assessment and Plan 48 yo F with abscess of left posterior thigh, spontaneously drained Plan: 1. Local wound care - alginate to wound bed every other day. 2. continue abx 3. wound culture - MRSA 4. prn pain control 5. warm compress to area as needed 6. contact precautions Thank you, please call with questions. Subjective Date of service: 04/09/19 Narrative: Pt seen and examined. No new complaints. Afebrile. Objective Vital Signs - 12hr 04/09/19 04/09/19 04/09/19 03:26 04:40 07:42 Temperature 97.8 F 98.2 F Pulse Rate 75 75 74 Respiratory 18 18 Rate Blood Pressure 144/77 143/78 O2 Sat by Pulse 92 91 Oximetry 04/09/19 04/09/19 04/09/19 10:59 11:02 11:04 Temperature 98.6 F Pulse Rate 78 78 78 Respiratory 18 Rate Blood Pressure 146/82 O2 Sat by Pulse 92 Oximetry - General physical appearance Narrative Exam: Gen: AAOx3. NAD CV: s1, S2+ Resp: even and unlabored Ext: L thigh wound clean with minimal seropurulent drainage. Skin ulceration. Covered with alginate and dry dressing. - Labs 04/08/19 04:22 04/09/19 05:11 Diabetes panel 04/09/19 Range/Units 05:11 Potassium 3.2 L (3.6-5.0) mmol/L Pituitary panel 04/09/19 Range/Units 05:11 Potassium 3.2 L (3.6-5.0) mmol/L Adrenal panel 04/09/19 Range/Units 05:11 Potassium 3.2 L (3.6-5.0) mmol/L
--- NOTE | 2019-04-09 18:37 | Progress Note ---
Assessment and Plan Assessment and plan: --Hypertensive urgency Current Visit: Yes Status: Acute Patient has been placed on Cardene drip. Will titrate according to protocol. And DC Continue multiple oral antihypertensives -- Abscess of left thigh Current Visit: Yes Status: Acute Patient started on empiric IV antibiotics. general surgery evaluation and recommendations noted and appreciated Hx of chronic congestive heart failure/Diastolic Current Visit: Yes Status: Acute We will continue routine home medications. Cardiology evaluation noted and appreciated --hypokalemia; Replace per protocol and monitor levels. --diabetes mellitus Accu-Chek sliding scale coverage ADA diet and insulin. --morbid obesity BMI 45.3 Advised weight reduction when medically stable -- DVT prophylaxis Current Visit: No Status: Acute Patient placed on sequential compression device. Monitor closely and adjust management as needed Plan of care reviewed with the patient and her nurse History Interval history: Patient seen and examined medical records reviewed Patient feels slightly better, blood pressures moderate control Denies any chest pain or shortness of breath Vital signs reviewed Hospitalist Physical - Constitutional Vitals: Temp Pulse Resp BP Pulse Ox 98.3 F 75 18 144/78 94 04/09/19 15:31 04/09/19 15:31 04/09/19 15:31 04/09/19 15:31 04/09/19 15:31 General appearance: Present: mild distress, well-nourished, obese (Morbidly obese) - EENT Eyes: Present: PERRL, EOM intact - Neck Neck: Present: supple, normal ROM - Respiratory Respiratory effort: normal Respiratory: bilateral: diminished, negative: rales, rhonchi, wheezing - Cardiovascular Rhythm: regular Heart Sounds: Present: S1 & S2 - Extremities Extremities: no ischemia, No edema - Abdominal General gastrointestinal: soft, non-tender, non-distended, normal bowel sounds - Integumentary Integumentary: Present: clear, warm - Psychiatric Psychiatric: appropriate mood/affect, cooperative - Neurologic Neurologic: CNII-XII intact, moves all extremities Results - Labs CBC & Chem 7: 04/08/19 04:22 04/10/19 10:52 Labs: Laboratory Last Values WBC 7.5 K/mm3 (4.5-11.0) 04/08/19 04:22 RBC 4.66 M/mm3 (3.65-5.03) 04/08/19 04:22 Hgb 12.6 gm/dl (10.1-14.3) 04/08/19 04:22 Hct 38.3 % (30.3-42.9) 04/08/19 04:22 MCV 82 fl (79-97) 04/08/19 04:22 MCH 27 pg (28-32) L 04/08/19 04:22 MCHC 33 % (30-34) 04/08/19 04:22 RDW 17.0 % (13.2-15.2) H 04/08/19 04:22 Plt Count 272 K/mm3 (140-440) 04/08/19 04:22 Lymph % (Auto) 20.8 % (13.4-35.0) 04/08/19 04:22 [place] % (Auto) 6.5 % (0.0-7.3) 04/08/19 04:22 Eos % (Auto) 3.3 % (0.0-4.3) 04/08/19 04:22 Baso % (Auto) 0.8 % (0.0-1.8) 04/08/19 04:22 Lymph # 1.6 K/mm3 (1.2-5.4) 04/08/19 04:22 [place] # 0.5 K/mm3 (0.0-0.8) 04/08/19 04:22 Eos # 0.2 K/mm3 (0.0-0.4) 04/08/19 04:22 Baso # 0.1 K/mm3 (0.0-0.1) 04/08/19 04:22 Seg Neutrophils % 68.6 % (40.0-70.0) 04/08/19 04:22 Seg Neutrophils # 5.1 K/mm3 (1.8-7.7) 04/08/19 04:22 PT 15.5 Sec. (12.2-14.9) H 04/08/19 04:22 INR 1.24 (0.87-1.13) H 04/08/19 04:22 APTT 31.8 Sec. (24.2-36.6) 04/08/19 04:22 Sodium 138 mmol/L (137-145) 04/08/19 04:22 Potassium 3.2 mmol/L (3.6-5.0) L 04/09/19 05:11 Chloride 99.7 mmol/L (98-107) 04/08/19 04:22 Carbon Dioxide 26 mmol/L (22-30) 04/08/19 04:22 Anion Gap 16 mmol/L 04/08/19 04:22 BUN 12 mg/dL (7-17) 04/08/19 04:22 Creatinine 1.2 mg/dL (0.7-1.2) 04/08/19 04:22 Estimated GFR 58 ml/min 04/08/19 04:22 BUN/Creatinine Ratio 10 % 04/08/19 04:22 Glucose 122 mg/dL (65-100) H 04/08/19 04:22 POC Glucose 114 (70-105) H 04/08/19 11:31 Calcium 8.8 mg/dL (8.4-10.2) 04/08/19 04:22 Magnesium 2.00 mg/dL (1.7-2.3) 04/09/19 05:11 Total Bilirubin 0.70 mg/dL (0.1-1.2) 04/07/19 18:37 AST 14 units/L (5-40) 04/07/19 18:37 ALT 12 units/L (7-56) 04/07/19 18:37 Alkaline Phosphatase 107 units/L (35-129) 04/07/19 18:37 Troponin T < 0.010 ng/mL (0.00-0.029) 04/07/19 23:13 NT-Pro-B Natriuret Pep 2139 pg/mL (0-450) H 04/07/19 18:37 Total Protein 8.0 g/dL (6.3-8.2) 04/07/19 18:37 Albumin 3.5 g/dL (3.9-5) L 04/07/19 18:37 Albumin/Globulin Ratio 0.8 % 04/07/19 18:37 Active Medications - Current Medications Current Medications: Generic Name Dose Route Start Last Admin Trade Name Freq PRN Reason Stop Dose Admin Doxazosin Mesylate 2 mg 04/08/19 15:00 04/09/19 11:02 Cardura PO 2 mg BID FREDDY Administration Hydralazine HCl 10 mg 04/08/19 14:17 04/08/19 15:37 Apresoline IV 10 mg Q4HR PRN Administration SBP >150 Vancomycin HCl 1,750 mg/ 535 mls @ 333.333 mls/hr 04/08/19 08:00 04/09/19 08:21 Sodium Chloride IV 333.333 mls/hr Q12H FREDDY Administration Magnesium Hydroxide 30 ml 04/07/19 23:34 Milk Of Magnesia PO Q4H PRN Constipation Metoprolol Tartrate 50 mg 04/08/19 15:00 04/09/19 11:04 Metoprolol PO 50 mg BID FREDDY Administration Morphine Sulfate 2 mg 04/07/19 23:34 04/08/19 14:34 Morphine IV 2 mg Q4H PRN Administration Pain, Moderate (4-6) Nifedipine 90 mg 04/08/19 15:00 04/09/19 11:04 Procardia Xl PO 90 mg QDAY FREDDY Administration Ondansetron HCl 4 mg 04/07/19 23:34 Zofran IV Q8H PRN Nausea And Vomiting Sodium Chloride 10 ml 04/08/19 10:00 04/09/19 11:05 Sodium Chloride Flush Syringe 10 Ml IV 10 ml BID FREDDY Administration Sodium Chloride 10 ml 04/07/19 23:34 04/08/19 21:48 Sodium Chloride Flush Syringe 10 Ml IV 10 ml PRN PRN Administration LINE FLUSH Nutrition/Malnutrition Assess - Dietary Evaluation Nutrition/Malnutrition Findings: Nutrition Notes Start: 04/09/19 11:26 Freq: Status: Active Protocol: Document 04/09/19 11:26 CT (Rec: 04/09/19 11:32 CT [id number]) Co-Sign 04/09/19 11:26 LP Nutrition Notes Need for Assessment generated from: MD Order,Education Initial or Follow up Assessment Current Diagnosis CKD(stage I-IV),Diabetes, Hypertension,Heart Failure Other Pertinent Diagnosis LLE wound Current Diet cardiac Labs/Tests K 3.2 POC Glu 114 Pertinent Medications Vancomycin Height 5 ft 5 in Weight 125.7 kg Usual Body Weight 124.738 kg [place] Body Weight (kg) 56.81 BMI 46.0 Intake Prior to Admission Good Weight Status Morbidly Obese Subjective/Other Information Consult for diet education. Pt stated she has not noticed any wt loss, she has a good appetite and is eating well. Pt ate 100% of breakfast. Pt had previous diet education for heart healthy CHO counting and accepted more education. Pt was very repsonsive to education. Burn Absent Trauma Absent GI Symptoms None Food Allergy No Current % PO Good (75-100%) Minimum of two criteria No physical signs of malnutrition #2 Nutrition Diagnosis Increased nutrient needs ( specify in comment below) Comments: protein Etiology wound healing As Evidenced by Signs and Symptoms LLE wound #1 Nutrition Diagnosis Food and nutrition-related knowledge deficit Etiology limited knowledge of cardiac/ consistent CHO diet As Evidenced by Signs and Symptoms pt acceptance of education and handout Is patient on ventilator? No Is Patient Ambulatory and/or Out of Bed Yes REE-([place]. Jeor-ambulatory/OOB) [ 2460.744 [id number]] Kcal/Kg value to use for calculation 12 Approximate Energy Requirements Using 1508 kcal/Kg Calculation Used for Recommendations Kcal/kg Additional Notes Protein needs: 113-136 g/kg/ day (1.25-1.5 g/kg/day AdBW 91 kg) Fluid needs: 1 ml/kcal/day Nutrition Intervention Change Diet Order: continue current diet Teaching Recipient Patient Learning Readiness Good Teaching Methods Discussion,Handout Response to Teaching Verbalize understanding Education Handouts Provided Heart Healthy CHO counting Barriers to Learning No Barriers RD phone number provided Yes Patient aware of follow up options Yes Goal #1 Wound healing Anticipated Discharge Needs: cardiac/consistent CHO Revisit per MD consult or patient Sign Off request:
[2019-04-10] MEDS: METOPROLOL TARTRATE 50 MG TAB PO SCH ×2 (09:37→21:39)
[2019-04-10] MEDS: DOXAZOSIN 1 MG TAB PO SCH (09:37)
[2019-04-10] MEDS: NIFEdipine XL 90 MG TAB PO SCH (09:38)
[2019-04-10] MEDS: VANCOMYCIN 1,750 MG in SODIUM CHLORIDE 0.9% 500 ML 500 ML IV SCH (09:41)
[2019-04-10] MEDS: hydrALAZINE 20 MG/1 ML INJ IV PRN (11:59)
--- NOTE | 2019-04-10 12:10 | Progress Note ---
Assessment and Plan Hypertension treated with Procardia XL and Cardura Left thigh abscess Hypokalemia Paroxysmal Afib -on eliquis for oral anticoagulation on metoprolol for suppression Hx of heart failure with a preserved EF Diabetes Obesity Recommend: Continue aggressive hypertension management. We will increase Cardura to 4 mg twice daily for optimal management. Subjective Date of service: 04/10/19 Interval history: Patient has no complaints. Blood pressure has improved. Hypokalemic on morning labs. Objective Vital Signs Temp Pulse Pulse Pulse Resp BP Pulse Ox 04/10/19 11:50 98.3 F 69 20 167/102 91 04/10/19 09:37 76 171/87 04/10/19 09:36 74 171/87 92 04/10/19 07:55 98.3 F 69 20 162/98 95 04/10/19 05:42 98.4 F 04/10/19 05:41 73 20 153/95 95 04/09/19 23:30 98.5 F 04/09/19 23:29 74 20 135/84 91 04/09/19 22:00 74 79 81 20 96 04/09/19 21:57 79 159/88 04/09/19 21:56 79 159/88 04/09/19 19:50 98.4 F 04/09/19 19:49 81 20 159/88 94 04/09/19 15:31 98.3 F 75 18 144/78 94 - Physical Examination General: No Apparent Distress HEENT: Positive: PERRL Neck: Positive: trachea midline Cardiac: Positive: Reg Rate and Rhythm Lungs: Positive: Decreased Breath Sounds Neuro: Positive: Grossly Intact Extremities: Present: Other (left thigh abscess). Absent: edema - Labs and Meds Comprehensive Metabolic Panel 04/10/19 Range/Units 10:52 Potassium 3.2 L (3.6-5.0) mmol/L
--- NOTE | 2019-04-10 13:33 | Progress Note ---
Assessment and Plan Hypertensive urgency Abscess of left thigh Hx of chronic congestive heart failure/Diastolic Hypokalemia Diabetes mellitus, SUB-OPTIMAL CONTROL Morbid obesity - continue to monitor blood pressure - continue chronic home medications / oral antihypetensives - continue to avoid nephrotoxins, renally adjust all medications - Address abscess - complete antibiotics for soft tissue and skin infections - continue GI & VTE prophylaxis - continue accuchecks qac & qhs with glycemic control per SSI for target BG < 180 mg/dl to help optimize wound healing - Weight loss and life style modifications counseled .... re-evaluate in am & prn CODE STATUS: FULL CODE Subjective Date of service: 04/10/19 Principal diagnosis: Hypertensive urgency; Abscess of left thigh; HFpEF; DM II; Morbid obesity Interval history: Patient is seen today for: Hypertensive urgency; Abscess of left thigh; Hx of chronic HFpEF; Hypokalemia; Diabetes mellitus; Morbid obesity Seen and examined at bedside; 24hour events reviewed; nursing and respiratory care staff consulted; no adverse overnight events reported to me; resting peacefully in bed; feels better; No N/V/F/C; denies acute chest pain or SOB Objective Vital Signs - 12hr 04/10/19 04/10/19 04/10/19 05:41 05:42 07:55 Temperature 98.4 F 98.3 F Pulse Rate 73 69 Respiratory 20 20 Rate Blood Pressure 153/95 162/98 O2 Sat by Pulse 95 95 Oximetry 04/10/19 04/10/19 04/10/19 09:36 09:37 10:00 Temperature Pulse Rate 74 76 70 Respiratory Rate Blood Pressure 171/87 171/87 O2 Sat by Pulse 92 Oximetry 04/10/19 11:50 Temperature 98.3 F Pulse Rate 69 Respiratory 20 Rate Blood Pressure 167/102 O2 Sat by Pulse 91 Oximetry Constitutional: no acute distress, alert Eyes: non-icteric ENT: oropharynx moist Neck: supple Effort: normal Ascultation: Bilateral: diminished breath sounds (at bases) Cardiovascular: regular rate and rhythm Gastrointestinal: non-tender, non-distended, other (obese) Integumentary: normal Extremities: no cyanosis Neurologic: normal mental status, non-focal exam, pupils equal and round, CN II- XII normal Psychiatric: mood appropriate CBC and BMP: 04/08/19 04:22 04/10/19 10:52 ABG, PT/INR, D-dimer: PT/INR, D-dimer PT 15.5 Sec. (12.2-14.9) H 04/08/19 04:22 INR 1.24 (0.87-1.13) H 04/08/19 04:22 Abnormal lab findings: Abnormal Labs 04/07/19 04/07/19 04/07/19 18:37 18:37 18:37 MCH 27 L RDW 16.3 H [place] % (Auto) 8.4 H Eos % (Auto) 8.7 H Eos # 0.7 H PT INR Potassium 3.1 L Chloride 97.8 L Creatinine 1.5 H Glucose POC Glucose NT-Pro-B Natriuret Pep 2139 H Albumin 3.5 L Vancomycin Trough 04/08/19 04/08/19 04/08/19 04:22 04:22 04:22 MCH 27 L RDW 17.0 H [place] % (Auto) Eos % (Auto) Eos # PT 15.5 H INR 1.24 H Potassium 3.3 L Chloride Creatinine Glucose 122 H POC Glucose NT-Pro-B Natriuret Pep Albumin Vancomycin Trough 04/08/19 04/09/19 04/09/19 11:31 05:11 19:42 MCH RDW [place] % (Auto) Eos % (Auto) Eos # PT INR Potassium 3.2 L Chloride Creatinine Glucose POC Glucose 114 H NT-Pro-B Natriuret Pep Albumin Vancomycin Trough 28.2 H 04/10/19 10:52 MCH RDW [place] % (Auto) Eos % (Auto) Eos # PT INR Potassium 3.2 L Chloride Creatinine Glucose POC Glucose NT-Pro-B Natriuret Pep Albumin Vancomycin Trough
[2019-04-10] MEDS ORDERED: POTASSIUM CHLORIDE ER 20 MEQ TAB PO ONE (14:44)
--- NOTE | 2019-04-10 14:46 | Progress Note ---
Assessment and Plan Assessment and plan: --MRSA wound cultures: Contact isolation, patient is already on vancomycin, ID consultation -- Hypertensive urgency present on admission Current Visit: Yes Status: Acute s/p Cardene drip. moderate control Continue multiple oral antihypertensives -- Abscess of left thigh Current Visit: Yes Status: Acute Spontaneous rupture , evaluated by surgery Wound cultures MRSA , continue current antibiotics ID consult , wound care Hx of chronic congestive heart failure/Diastolic Current Visit: Yes Status: Acute We will continue routine home medications. Cardiology following --hypokalemia; Replace per protocol and monitor levels. --diabetes mellitus Accu-Chek sliding scale coverage ADA diet and insulin. --morbid obesity BMI 45.3 Advised weight reduction when medically stable -- DVT prophylaxis Current Visit: No Status: Acute Patient placed on sequential compression device. Monitor closely and adjust management as needed Plan of care reviewed with the patient and her nurse Disposition; discharge when medically stable History Interval history: Patient seen and examined medical records reviewed Patient feels slightly better anxious to go home Patient's wound cultures positive for MRSA Contact isolation requested Patient is already on vancomycin Vital signs reviewed Blood pressures uncontrolled Hospitalist Physical - Constitutional Vitals: Temp Pulse Resp BP Pulse Ox 98.3 F 69 20 167/102 91 04/10/19 11:50 04/10/19 11:50 04/10/19 11:50 04/10/19 11:50 04/10/19 11:50 General appearance: Present: mild distress, well-nourished, obese (Morbidly obese) - EENT Eyes: Present: PERRL, EOM intact - Neck Neck: Present: supple, normal ROM - Respiratory Respiratory effort: normal Respiratory: bilateral: diminished, negative: rales, rhonchi, wheezing - Cardiovascular Rhythm: regular Heart Sounds: Present: S1 & S2 - Extremities Extremities: no ischemia, No edema, abnormal (Thigh swelling significantly improved) - Abdominal General gastrointestinal: soft, non-tender, non-distended, normal bowel sounds - Integumentary Integumentary: Present: clear, warm - Psychiatric Psychiatric: appropriate mood/affect, cooperative - Neurologic Neurologic: moves all extremities Results - Labs CBC & Chem 7: 04/08/19 04:22 04/10/19 10:52 Labs: Laboratory Last Values WBC 7.5 K/mm3 (4.5-11.0) 04/08/19 04:22 RBC 4.66 M/mm3 (3.65-5.03) 04/08/19 04:22 Hgb 12.6 gm/dl (10.1-14.3) 04/08/19 04:22 Hct 38.3 % (30.3-42.9) 04/08/19 04:22 MCV 82 fl (79-97) 04/08/19 04:22 MCH 27 pg (28-32) L 04/08/19 04:22 MCHC 33 % (30-34) 04/08/19 04:22 RDW 17.0 % (13.2-15.2) H 04/08/19 04:22 Plt Count 272 K/mm3 (140-440) 04/08/19 04:22 Lymph % (Auto) 20.8 % (13.4-35.0) 04/08/19 04:22 [place] % (Auto) 6.5 % (0.0-7.3) 04/08/19 04:22 Eos % (Auto) 3.3 % (0.0-4.3) 04/08/19 04:22 Baso % (Auto) 0.8 % (0.0-1.8) 04/08/19 04:22 Lymph # 1.6 K/mm3 (1.2-5.4) 04/08/19 04:22 [place] # 0.5 K/mm3 (0.0-0.8) 04/08/19 04:22 Eos # 0.2 K/mm3 (0.0-0.4) 04/08/19 04:22 Baso # 0.1 K/mm3 (0.0-0.1) 04/08/19 04:22 Seg Neutrophils % 68.6 % (40.0-70.0) 04/08/19 04:22 Seg Neutrophils # 5.1 K/mm3 (1.8-7.7) 04/08/19 04:22 PT 15.5 Sec. (12.2-14.9) H 04/08/19 04:22 INR 1.24 (0.87-1.13) H 04/08/19 04:22 APTT 31.8 Sec. (24.2-36.6) 04/08/19 04:22 Sodium 138 mmol/L (137-145) 04/08/19 04:22 Potassium 3.2 mmol/L (3.6-5.0) L 04/10/19 10:52 Chloride 99.7 mmol/L (98-107) 04/08/19 04:22 Carbon Dioxide 26 mmol/L (22-30) 04/08/19 04:22 Anion Gap 16 mmol/L 04/08/19 04:22 BUN 12 mg/dL (7-17) 04/08/19 04:22 Creatinine 1.2 mg/dL (0.7-1.2) 04/08/19 04:22 Estimated GFR 58 ml/min 04/08/19 04:22 BUN/Creatinine Ratio 10 % 04/08/19 04:22 Glucose 122 mg/dL (65-100) H 04/08/19 04:22 POC Glucose 114 (70-105) H 04/08/19 11:31 Calcium 8.8 mg/dL (8.4-10.2) 04/08/19 04:22 Magnesium 2.00 mg/dL (1.7-2.3) 04/09/19 05:11 Total Bilirubin 0.70 mg/dL (0.1-1.2) 04/07/19 18:37 AST 14 units/L (5-40) 04/07/19 18:37 ALT 12 units/L (7-56) 04/07/19 18:37 Alkaline Phosphatase 107 units/L (35-129) 04/07/19 18:37 Troponin T < 0.010 ng/mL (0.00-0.029) 04/07/19 23:13 NT-Pro-B Natriuret Pep 2139 pg/mL (0-450) H 04/07/19 18:37 Total Protein 8.0 g/dL (6.3-8.2) 04/07/19 18:37 Albumin 3.5 g/dL (3.9-5) L 04/07/19 18:37 Albumin/Globulin Ratio 0.8 % 04/07/19 18:37 Vancomycin Trough 28.2 ug/mL (5.0-20.0) H 04/09/19 19:42 Active Medications - Current Medications Current Medications: Generic Name Dose Route Start Last Admin Trade Name Freq PRN Reason Stop Dose Admin Doxazosin Mesylate 4 mg 04/10/19 22:00 Cardura PO BID FREDDY Hydralazine HCl 10 mg 04/08/19 14:17 04/10/19 11:59 Apresoline IV 10 mg Q4HR PRN Administration SBP >150 Vancomycin HCl 1,750 mg/ 535 mls @ 333.333 mls/hr 04/11/19 10:00 Sodium Chloride IV Q24H FREDDY Magnesium Hydroxide 30 ml 04/07/19 23:34 Milk Of Magnesia PO Q4H PRN Constipation Metoprolol Tartrate 50 mg 04/08/19 15:00 04/10/19 09:37 Metoprolol PO 50 mg BID FREDDY Administration Morphine Sulfate 2 mg 04/07/19 23:34 04/08/19 14:34 Morphine IV 2 mg Q4H PRN Administration Pain, Moderate (4-6) Nifedipine 90 mg 04/08/19 15:00 04/10/19 09:38 Procardia Xl PO 90 mg QDAY FREDDY Administration Ondansetron HCl 4 mg 04/07/19 23:34 Zofran IV Q8H PRN Nausea And Vomiting Sodium Chloride 10 ml 04/08/19 10:00 04/10/19 09:45 Sodium Chloride Flush Syringe 10 Ml IV 10 ml BID FREDDY Administration Sodium Chloride 10 ml 04/07/19 23:34 04/08/19 21:48 Sodium Chloride Flush Syringe 10 Ml IV 10 ml PRN PRN Administration LINE FLUSH Nutrition/Malnutrition Assess - Dietary Evaluation Nutrition/Malnutrition Findings: Nutrition Notes Start: 04/09/19 11:26 Freq: Status: Active Protocol: Document 04/09/19 11:26 CT (Rec: 04/09/19 11:32 CT [id number]) Co-Sign 04/09/19 11:26 LP Nutrition Notes Need for Assessment generated from: MD Order,Education Initial or Follow up Assessment Current Diagnosis CKD(stage I-IV),Diabetes, Hypertension,Heart Failure Other Pertinent Diagnosis LLE wound Current Diet cardiac Labs/Tests K 3.2 POC Glu 114 Pertinent Medications Vancomycin Height 5 ft 5 in Weight 125.7 kg Usual Body Weight 124.738 kg [place] Body Weight (kg) 56.81 BMI 46.0 Intake Prior to Admission Good Weight Status Morbidly Obese Subjective/Other Information Consult for diet education. Pt stated she has not noticed any wt loss, she has a good appetite and is eating well. Pt ate 100% of breakfast. Pt had previous diet education for heart healthy CHO counting and accepted more education. Pt was very repsonsive to education. Burn Absent Trauma Absent GI Symptoms None Food Allergy No Current % PO Good (75-100%) Minimum of two criteria No physical signs of malnutrition #2 Nutrition Diagnosis Increased nutrient needs ( specify in comment below) Comments: protein Etiology wound healing As Evidenced by Signs and Symptoms LLE wound #1 Nutrition Diagnosis Food and nutrition-related knowledge deficit Etiology limited knowledge of cardiac/ consistent CHO diet As Evidenced by Signs and Symptoms pt acceptance of education and handout Is patient on ventilator? No Is Patient Ambulatory and/or Out of Bed Yes REE-([place] Jeor-ambulatory/OOB) [ 2460.744 [id number]] Kcal/Kg value to use for calculation 12 Approximate Energy Requirements Using 1508 kcal/Kg Calculation Used for Recommendations Kcal/kg Additional Notes Protein needs: 113-136 g/kg/ day (1.25-1.5 g/kg/day AdBW 91 kg) Fluid needs: 1 ml/kcal/day Nutrition Intervention Change Diet Order: continue current diet Teaching Recipient Patient Learning Readiness Good Teaching Methods Discussion,Handout Response to Teaching Verbalize understanding Education Handouts Provided Heart Healthy CHO counting Barriers to Learning No Barriers RD phone number provided Yes Patient aware of follow up options Yes Goal #1 Wound healing Anticipated Discharge Needs: cardiac/consistent CHO Revisit per MD consult or patient Sign Off request:
[2019-04-10] MEDS: hydrALAZINE 25 MG TAB PO SCH (21:39)
[2019-04-10] MEDS: DOXAZOSIN 4 MG TAB PO SCH (21:39)
[2019-04-11] MEDS: hydrALAZINE 25 MG TAB PO SCH ×2 (07:44→14:54)
[2019-04-11] MEDS: DOXAZOSIN 4 MG TAB PO SCH (09:30)
[2019-04-11] MEDS: METOPROLOL TARTRATE 50 MG TAB PO SCH (09:30)
[2019-04-11] MEDS: NIFEdipine XL 90 MG TAB PO SCH (09:30)
[2019-04-11] MEDS ORDERED: VANCOMYCIN 1,750 MG in SODIUM CHLORIDE 0.9% 500 ML 500 ML IV SCH (10:00)
[2019-04-11] MEDS ORDERED: VANCOMYCIN 1,250 MG in SODIUM CHLORIDE 0.9% 250ML 250 ML IV SCH (10:00)
--- NOTE | 2019-04-11 11:22 | Progress Note ---
Assessment and Plan Hypertension treated with Procardia XL and Cardura Left thigh abscess Hypokalemia Paroxysmal Afib -on eliquis for oral anticoagulation on metoprolol for suppression Hx of heart failure with a preserved EF Diabetes Obesity Recommend: Continue aggressive hypertension management. Subjective Date of service: 04/11/19 Principal diagnosis: Hypertensive urgency; Abscess of left thigh; HFpEF; DM II; Morbid obesity Interval history: Patient has no cardiac complaints. Discharge held due to positive MRSA of wound culture. Objective Vital Signs Temp Pulse Resp BP BP Pulse Ox 04/11/19 09:30 75 173/90 04/11/19 08:00 98.5 F 77 18 154/92 93 04/11/19 05:09 98.4 F 04/11/19 05:07 72 18 172/95 92 04/11/19 00:26 97.8 F 70 16 143/84 92 04/10/19 20:29 82 04/10/19 19:28 98.6 F 82 24 150/84 95 04/10/19 16:31 98.3 F 79 20 151/82 94 04/10/19 12:00 68 04/10/19 11:50 98.3 F 69 20 167/102 91 - Physical Examination General: No Apparent Distress HEENT: Positive: PERRL Neck: Positive: trachea midline Cardiac: Positive: Reg Rate and Rhythm Lungs: Positive: Normal Breath Sounds Neuro: Positive: Grossly Intact Extremities: Present: Other (left thigh abscess). Absent: edema - Labs and Meds Comprehensive Metabolic Panel 04/10/19 Range/Units 10:52 Potassium 3.2 L (3.6-5.0) mmol/L
[2019-04-11] MEDS ORDERED: SPIRONOLACTONE 50 MG TAB PO SCH (12:00)
--- NOTE | 2019-04-11 16:27 | Consultation ---
History of Present Illness - Reason for Consult Consult date: 04/11/19 MRSA abscess Requesting physician: ARMAND MAGANA - History of Present Illness The patient is a 48-year-old female with hypertension, CAD, CHF, diabetes who came into the hospital on 04/07/2019 due to high blood pressures. She was also complaining of left thigh blister with drainage, was evaluated by general surgery and was noted to have a left thigh abscess that was spontaneously draining, so I & D was not done. Patient is getting local wound care along with intravenous antibiotics. Wound culture is growing MRSA and hence infectious diseases was consulted. She has been afebrile. no new complaints. Pain is well controlled. Review of Systems: General: no fevers,chills or rigors HEENT: no new visual disturbance Respiratory: No cough, sputum, hemoptysis or shortness of breath Cardiovascular: No chest pain, syncope Gastrointestinal: No nausea, vomiting or diarrhea Genitourinary: No dysuria or hematuria Musculoskeletal: No new or worsening neck pain or back pain Neurologic: No headaches, seizures Hematologic: No easy bruising or bleeding Endocrine: No night sweats or acute weight loss Skin: negative for rash, jaundice Psychiatric: No suicidal or homicidal ideation Past History Past Medical History: diabetes, heart failure, hypertension, other (Chronic kidney disease) Past Surgical History: No surgical history Social history: no significant social history Family history: diabetes, hypertension Medications and Allergies Allergies Allergy/AdvReac Type Severity Reaction Status Date / Time No Known Allergies Allergy Verified 11/28/14 15:18 Home Medications Medication Instructions Recorded Confirmed Last Taken Type Furosemide [Lasix TAB] 20 mg PO BID 08/11/16 04/07/19 08/10/16 History amLODIPine 5 mg PO BID 08/11/16 04/07/19 08/10/16 History glipiZIDE [glipiZIDE ER] 5 mg PO BID 08/11/16 04/07/19 08/10/16 History Aspirin EC 325 mg PO QDAY #30 tablet. 08/12/16 04/07/19 Unknown Rx Diltiazem HCl [Diltiazem ER] 120 mg PO DAILY #30 capsule.er 08/13/16 04/07/19 Unknown Rx Metoprolol Xl [Metoprolol 50 mg PO QHS #30 tablet 08/13/16 04/07/19 Unknown Rx SUCCINATE ER TAB] Active Meds: Active Medications Hydralazine HCl (Apresoline) 10 mg IV Q4HR PRN PRN Reason: SBP >150 Last Admin: 04/10/19 11:59 Dose: 10 mg Documented by: Hydralazine HCl (Apresoline) 25 mg PO Q8HR [facility] Last Admin: 04/11/19 14:54 Dose: 25 mg Documented by: Vancomycin HCl 1,250 mg/ (Sodium Chloride) 275 mls @ 166.667 mls/hr IV Q24HR [facility] Last Admin: 04/11/19 10:11 Dose: 166.667 mls/hr Documented by: Labetalol HCl (Labetalol) 200 mg PO BID [facility] Magnesium Hydroxide (Milk Of Magnesia) 30 ml PO Q4H PRN PRN Reason: Constipation Morphine Sulfate (Morphine) 2 mg IV Q4H PRN PRN Reason: Pain, Moderate (4-6) Last Admin: 04/08/19 14:34 Dose: 2 mg Documented by: Nifedipine (Procardia Xl) 90 mg PO QDAY [facility] Last Admin: 04/11/19 09:30 Dose: 90 mg Documented by: Ondansetron HCl (Zofran) 4 mg IV Q8H PRN PRN Reason: Nausea And Vomiting Sodium Chloride (Sodium Chloride Flush Syringe 10 Ml) 10 ml IV BID [facility] Last Admin: 04/11/19 09:31 Dose: 10 ml Documented by: Sodium Chloride (Sodium Chloride Flush Syringe 10 Ml) 10 ml IV PRN PRN PRN Reason: LINE FLUSH Last Admin: 04/08/19 21:48 Dose: 10 ml Documented by: Spironolactone (Aldactone) 50 mg PO QDAY [facility] Last Admin: 04/11/19 12:22 Dose: 50 mg Documented by: Physical Examination - Physical Exam Narrative exam: Physical Exam: Constitutional: Alert, cooperative. No acute distress. Morbidly obese Head, Ears, Nose: Normocephalic, atraumatic. External ears, nose normal Eyes: Conjunctivae/corneas clear. No icterus. No ptosis. Neck: Supple, no meningeal signs Oral: dentition fair, no thrush Cardiovascular: S1, S2 normal. Respiratory: Good air entry, clear to auscultation bilaterally GI: Soft, non-tender; bowel sounds normal. No peritoneal signs Musculoskeletal: Left posterior thigh with about 3 cm wound with slight purulence, surrounding induration and tenderness +, measures about 6 cm. Skin: No rash or abscess Hem/Lymphatic: No palpable cervical or supraclavicular nodes. No lymphangitis Psych: Mood ok. Affect normal Neurological: Awake, alert, oriented. No gross abnormality - Constitutional Vitals: Vital Signs Temp Pulse Resp BP Pulse Ox 98.5 F 71 19 162/93 99 04/11/19 08:00 04/11/19 14:54 04/11/19 12:49 04/11/19 14:54 04/11/19 12:49 Temperature -Last 24 Hours Temperature 98.5 F Temperature 98.4 F Temperature 97.8 F Temperature 98.6 F Temperature 98.3 F Results - Labs CBC & Chem 7: 04/08/19 04:22 04/10/19 10:52 - Imaging and Cardiology Chest x-ray: report reviewed, image reviewed (no pneumonia) Assessment and Plan Cultures: Blood culture: negative Wound culture: MRSA A/P: 48-year-old female with hypertension, CAD, CHF, diabetes with: 1) Left thigh abscess, secondary to MRSA: spontaneously draining. Evaluated by Gen. Surg. Continue local wound care. Receiving IV Vancomycin here in the hospital. 2) Morbid obesity 3) DM-2 4) JUN on CKD: creatinine improved. Avoiding Bactrim. Recs: PO linezolid 600 mg BID x 7 days already has outpatient wound care appointment d/w Dr. Misa Fong MD, FACP [facility] C: [phone] O: [phone] F: [phone]
--- NOTE | 2019-04-11 16:55 | Discharge Summary ---
Providers - Providers Date of Admission: 04/07/19 22:10 Date of discharge: 04/11/19 Attending physician: ARMAND MAGANA 04/07/19 21:36 Consult to Physician [CONS] Stat Comment: Consulting Provider: KEVIN BOLAND Physician Instructions: Reason For Exam: hypertensive emergency Consult to Physician [CONS] Stat Comment: Consulting Provider: EMELINA SAUCEDA Physician Instructions: Reason For Exam: cellulitis abscess 04/07/19 23:34 Consult to Dietitian/Nutrition [CONS] Routine Physician Instructions: Reason For Exam: Reason for Consult: Diet education 04/08/19 09:14 Consult to Physician [CONS] Urgent Comment: Consulting Provider: BJ SOTELO Physician Instructions: Reason For Exam: critical care management 04/10/19 14:32 Consult to Physician [CONS] Routine Comment: Consulting Provider: CHRISTY CALDERON Physician Instructions: Reason For Exam: Abscess thigh/MRSA Primary care physician: [employer] Hospitalization Reason for admission: Hypertensive urgency/Cellulitis/abscess thigh Condition: Stable Pertinent studies: CXR ECHO Hospital course: 48-year-old female patient with known history of hypertension, chronic kidney disease, congestive heart failure and diabetes mellitus was admitted through the ER with hypertensive emergency with BP > 250 systolic Patient also has a known history of left thigh cellulitis with an abscess which is currently draining. She had gone to her primary care physician for evaluation of this abscess on the thigh but was immediately referred to the emergency room for elevated blood pressure. started on Cardene drip,later managed with multiple antihypertensives. Patient was seen by surgeon,advised wound care,had psitive MRSA cultures,[facility] Today patient is comfortable,no new complaints,vital signs stable. Stable at discharge Discharge diagnosis: -- Hypertensive urgency present on admission Current Visit: Yes Status: Acute s/p Cardene drip. moderate control Continue multiple oral antihypertensives -- Abscess of left thigh Current Visit: Yes Status: Acute Spontaneous rupture , evaluated by surgery Wound cultures MRSA , continue current antibiotics ID evaluated, wound care --MRSA wound cultures: Contact isolation, patient is already on vancomycin, ID evaluated Hx of chronic congestive heart failure/Diastolic Current Visit: Yes Status: Acute We will continue routine home medications. Cardiology following --hypokalemia; Replace per protocol and monitor levels. --diabetes mellitus Accu-Chek sliding scale coverage ADA diet and insulin. --morbid obesity BMI 45.3 Advised weight reduction when medically stable -- DVT prophylaxis Current Visit: No Status: Acute Patient placed on sequential compression device. Monitor closely and adjust management as needed Plan of care reviewed with the patient and her nurse Stable at discharge Disposition: [facility] TO HOME OR SELFCARE Time spent for discharge: 32 min Core Measure Documentation - Palliative Care Palliative Care/ Comfort Measures: Not Applicable - Core Measures Any of the following diagnoses?: none Exam - Constitutional Vitals: Temp Pulse Resp BP Pulse Ox 98.5 F 71 19 162/93 99 04/11/19 08:00 04/11/19 14:54 04/11/19 12:49 04/11/19 14:54 04/11/19 12:49 General appearance: Present: no acute distress, well-nourished - EENT Eyes: Present: PERRL, EOM intact - Neck Neck: Present: supple, normal ROM - Cardiovascular Rhythm: regular Heart Sounds: Present: S1 & S2 - Extremities Extremities: no ischemia, No edema - Abdominal General gastrointestinal: Present: soft, non-tender, non-distended, normal bowel sounds - Integumentary Integumentary: Present: clear, warm - Musculoskeletal Musculoskeletal: strength equal bilaterally - Psychiatric Psychiatric: appropriate mood/affect, cooperative - Neurologic Neurologic: moves all extremities Plan Activity: no restrictions Diet: diabetic Wound: per wound nurse instructions Additional Instructions: Follow-up outpatient wound care. Advised today's work excuse 04/12/2019, 04/13/2019 may return to work on 04/14/2019. Advice Exercise as tolerated and weight reduction. Continue Eliquis as before. Contact saleem chung handwashing after wound dressing Follow up with: KAREN CRESPO MD [Primary Care Provider] - 7 Days KEVIN BOLAND MD [Staff Physician] - 7 Days EMELINA SAUCEDA DO [Staff Physician] - 7 Days Forms: Work/School Release Form Prescriptions: Spironolactone [Aldactone] 50 mg PO QDAY #30 tablet hydrALAZINE [Apresoline TAB] 25 mg PO Q8HR #90 tablet labetaloL [Labetalol 200mg TAB] 200 mg PO BID #60 tablet NIFEdipine XL [Procardia Xl] 90 mg PO QDAY #30 tablet Linezolid [Zyvox] 600 mg PO BID #14 tablet
[2019-04-11 17:07] VITALS: BP 172/99
[2019-04-11] MEDS ORDERED: APIXABAN 5 MG TAB PO SCH (22:00)
== END 2019-04-11 18:41 | disposition home or self-care (01) | DRG 603 ==
LOC: ED 17:04 → CC1 22:10 → 4A 04-08 17:25
PROVIDERS: ADMIT Internal Medicine Geriatric Medicine; ATTEND Internal Medicine
PROC: 3E0234Z Introduction of Serum, Toxoid and Vaccine into Muscle, Percutaneous Approach (ICD-10-PCS; principal; 2019-04-07)
DX: L03.116 Cellulitis of left lower limb (principal); I50.32 Chronic diastolic (congestive) heart failure; Z68.42 Body mass index [BMI] 45.0-49.9, adult; I13.0 Hypertensive heart and chronic kidney disease with heart failure and stage 1 through stage 4 chronic kidney disease, or unspecified chronic kidney disease; N17.9 Acute kidney failure, unspecified; N18.4 Chronic kidney disease, stage 4 (severe); L02.416 Cutaneous abscess of left lower limb; I16.0 Hypertensive urgency; E87.6 Hypokalemia; E66.01 Morbid (severe) obesity due to excess calories; F41.9 Anxiety disorder, unspecified; F32.9 Major depressive disorder, single episode, unspecified; I48.0 Paroxysmal atrial fibrillation; I25.10 Atherosclerotic heart disease of native coronary artery without angina pectoris; E11.22 Type 2 diabetes mellitus with diabetic chronic kidney disease; Z82.49 Family history of ischemic heart disease and other diseases of the circulatory system; Z83.3 Family history of diabetes mellitus; Z79.899 Other long term (current) drug therapy; Z79.82 Long term (current) use of aspirin; Z22.322 Carrier or suspected carrier of Methicillin resistant Staphylococcus aureus; Z79.01 Long term (current) use of anticoagulants; Z71.3 Dietary counseling and surveillance; Z23 Encounter for immunization
CPT/HCPCS: 36415; 71045; 80048; 80053; 80202; 82962; 83735; 83880; 84132; 84484; 85025; 85610; 85730; 87040; 87076; 87116; 87186; 90471; 90715; 93005; 93010; 93306; 96365; 96366; G0378; J0360; J2270; J3370; J7040; J7050